=== PATIENT | male | born 1940 | race Caucasian/White ===

== ENCOUNTER 2020-08-07 13:13 | Emergency (ER) | payer OTHER, MEDICARE, SELFPAY ==
[2020-08-07 13:18] VITALS: BP 115/75; PULSE 78; RESP 16; TEMP 36.3; O2SAT 98; BMI 29.2
--- NOTE | 2020-08-07 13:40 | ED.VISSUMM ---
- ER Visit Summary Date of Service: 08/07/20 Chief Complaint: Lower lip swelling History of Present Illness: The patient is a 80 M history of diabetes and hypertension is on lisinopril at home. He is never had this happen before. Since about 9 AM this morning he had lower lip swelling. He said he thinks is actually getting a little better. He denies any other complaints. He denies any trouble breathing or swallowing. No tongue swelling. Physical Examination: Older male no acute distress vital signs stable afebrile. Current blood pressure 115/75. Pulse ox 98% on room air no signs hypoxia. H EENT exam poor dentition. Decaying teeth. Cavities. His lower lip is swollen. His tongue and floor of his mouth and posterior pharynx are unremarkable. No trouble swallowing or breathing. Neck nontender. No lymphadenopathy. Lungs clear to auscultation bilaterally. Heart regular rhythm no murmur. Abdomen is soft and nontender. Normal bowel sounds no peritoneal signs. Moving all 4 extremities. No edema. Neurologically is awake and alert with no focal motor deficits. Test Results: None Emergency Department Course and Treatment: History and exam and with the patient currently being on an ELIZABETH inhibitor for his blood pressure this is all consistent with this being angioneurotic edema of his lower lip. He will be given 1 dose of prednisone. He and I and his talked he will need to come off the lisinopril. Treatment Plan: Change his blood pressure medication to metoprolol. Watch his blood pressures at home. [facility] to determine what blood pressure medication needs to be on long-term. He knows he can no longer take any ELIZABETH inhibitor medications. Disposition: discharge Impression: Lower lip swelling secondary to angioneurotic edema secondary to ELIZABETH inhibitor History of hypertension and diabetes This note was generated with [employer] software. It may contain incorrect words, spelling, and punctuation that were not noted in review of the chart prior to signing ED Disposition - Plan for ED Patient: Referrals: Braden Faith MD [Primary Care Provider] -
--- NOTE | 2020-08-07 13:43 | ED.DEP ---
ED Disposition - Plan for ED Patient: Disposition: Home or Assisted Living Instructions: ED Angioedema Prescriptions: Metoprolol Succinate 25 mg PO DAILY #30 tab.er.24h Prescription Printed Referrals: Braden Faith MD [Primary Care Provider] - As Needed Additional Instructions: Follow-up with either Dr. Faith or the [facility] whichever one prescribes your blood pressure medication. The swelling of your lip was most likely caused by the lisinopril which is a type of blood pressure medication called ELIZABETH inhibitors. You could no longer be on these medications. We will start you on metoprolol for your blood pressure. Watch her blood pressures to make sure the not too low or too high. Long-term your primary care physician at the [facility] can determine what medication to have you on. The swelling should get better if it gets worse or you have a trouble breathing or swallowing return to the emergency department immediately.
[2020-08-07 14:07] VITALS: BP 168/93; PULSE 77; RESP 16; O2SAT 100
[2020-08-07] MEDS: predniSONE 20 MG Tablet 40 MG PO (14:07)
== END 2020-08-07 14:15 | disposition home or self-care (01) ==
PROVIDERS: Emergency Provider Emergency Medicine; PCP Family Medicine
DX: T78.3XXA Angioneurotic edema, initial encounter (principal); T46.4X5A Adverse effect of angiotensin-converting-enzyme inhibitors, initial encounter; E11.9 Type 2 diabetes mellitus without complications; I10 Essential (primary) hypertension
CPT/HCPCS: 99283

== ENCOUNTER 2023-01-24 11:10 | Emergency (ER) | payer OTHER, SELFPAY ==
[2023-01-24 11:11] VITALS: BP 140/80; PULSE 70; RESP 16; TEMP 36.6; O2SAT 98; BMI 27.7
--- NOTE | 2023-01-24 11:40 | EDS_ITS ---
HPI History of Present Illness Chief Complaint: Dental [facility] Medical History (Updated 01/24/23 @ 14:[address] Eren Pierre, ) Diabetes mellitus HTN (hypertension) Home Medications metformin 500 mg tablet,extended release 24 hr 08/07/20 [History Last Taken Unknown] metoprolol succinate 25 mg tablet,extended release 24 hr 25 mg PO DAILY ##30 08/07/20 [Rx Last Taken Unknown] Allergy/AdvReac Type Severity Reaction Status Date / Time No Known Allergies Allergy Verified 01/24/23 11:12 Social History Smoking Status: Former smoker EXAM Physical Exam Const Vital Signs: 01/24/23 11:11 Temperature 97.9 F Temperature Source Temporal Pulse Rate 70 Respiratory Rate 16 Blood Pressure 140/80 H Blood Pressure Mean 100 Pulse Ox 98 Oxygen Delivery Method Room Air MDM MDM MDM Narrative Medical decision making narrative: HISTORY OF PRESENT ILLNESS: 83-year-old male here for left sided facial/jaw swelling for last 3 days. He denies any pain. Denies any dental pain. Denies any vomiting. Denies any drooling. Denies any neck stiffness. Denies any syncope. Denies a history of cancer. Denies any chest pain or shortness of breath REVIEW OF SYSTEMS: Pertinent positives: Swelling Pertinent negatives: Trouble swallowing, drooling PHYSICAL EXAM: Nursing triage notes reviewed, Vital signs reviewed Constitutional: please see mdm HENT: MMM, no evidence of dental abscess, no submandibular edema or induration, no tonsillar exudates or erythema, uvula midline, patient was controlling secretions, no drooling, no trimus, no dysphonia, there is small area of movable tissue in the left angle of the mandible with no overlying skin changes nonten dann to palpation with no fluctuance or induration Eyes: Pupils equal round and reactive to light, Extraocular muscles intact Neck: No stridor, no JVD, full neck ROM Lungs: Clear to auscultation, No wheezing or rales. No increased work of breathing, no conversational dyspnea, no accessory muscle use, no nasal flaring. No respiratory distress noted Heart: Regular rate and rhythm, No murmurs, No rubs and No gallops, 2+ distal pulses (radial, femoral, posterior tibial) in all extremities MEDICAL DECISION MAKING: Chief Complaint: Jaw swelling External records reviewed: No recent advanced imaging MDM Narrative: The patient was hemodynamically stable, afebrile, nontoxic-appearing. Exam with freely movable mass in the left jaw. I considered the following differential diagnosis: Mass, abscess, lymphadenopathy No oral lesions. No airway compromise trismus or other abnormalities. CT scan was obtained to rule out abscess, mass. CT scan was concerning for lymphadenopathy versus mass. Told patient take Tylenol/ibuprofen I gave strict return precautions. I did make the patient close follow-up with our outpatient oncology clinic called [facility]. Factors affecting care: Type 2 diabetes, hypertension Social determinants of health: Elderly History obtained from others: Shared decision making: I will have a discussion with the patient and or visitors regarding risk/wilma efits of further testing or admission. They will be made aware of of the risk/benefits inherent in this decision they will be given the opportunity to voice understanding. Consults: None Lab Data Attestation: I reviewed the patient's lab results. Lab results narrative: CBC without leukocytosis, severe anemia, no thrombocytopenia. BMP without evidence of significant electrolyte abnormalities, no anion gap, no acute kidney injury. Labs: Laboratory Results - last 24 hr 01/24/23 01/24/23 12:10 12:10 WBC 7.3 RBC 4.39 L Hgb 13.8 Hct 42.9 MCV 97.7 H MCH 31.4 MCHC 32.2 RDW Std Deviation 47.2 H RDW Coeff of Michelle 13.2 Plt Count 141 L MPV 9.6 Immature Gran % (Auto) 1.800 H Neut % (Auto) 59.2 Lymph % (Auto) 27.4 [place] % (Auto) 9.4 Eos % (Auto) 1.5 Baso % (Auto) 0.7 Absolute Neuts (auto) 4.3 Absolute Lymphs (auto) 1.99 Nucleated RBC % 0 Sodium 140 Potassium 3.9 Chloride 109 H Carbon Dioxide 26.0 Anion Gap 5 BUN 15 Creatinine 0.97 Estim Creat Clear Calc 59.73 Est GFR (MDRD) Af Amer 95 Est GFR (MDRD) Non-Af 79 BUN/Creatinine Ratio 15.4 Glucose 189 H Calcium 9.2 Radiography Diagnostic Testing: Clinical Impression(s) from Imaging Studies Soft Tissue Neck CT 01/24/23 12:03 IMPRESSION: Multiple small nodules throughout the bilateral parotid glands which may represent intraparotid lymph nodes or benign lymphoepithelial lesions. 1.3 cm nodule at the inferior margin of the left parotid, which may represent mild lymphadenopathy or small salivary gland tumor. Recommend follow-up. Mild subcutaneous edema over the left neck and involving the submandibular gland, likely cellulitis or mild inflammation without evidence for abscess. Severe calcified plaque at the right carotid bifurcation. Technologist reported IV infiltration during examination. Recommend correlation with physical examination of injection site. Electronically Signed: Bisi Walker MD at 13:55 EDT , Discharge Plan Triage Chief Complaint: Dental ED Provider: Eren Pierre Dx/Rx/DC Orders Clinical Impression: Lymphoid hyperplasia Instructions: Lymphadenopathy Prescriptions: No Action metformin 500 MG tablet metoprolol succinate 25 MG tablet extended release 24 hr 25 mg PO DAILY Qty: 30 1RF Other Ambulatory Orders: [facility]: Oncology Referral [facility] (Routine) Facility: [facility] - Location: [facility] Ordered By: Dr. Eren Pierre Primary Care Provider: Braden Faith Referrals: Braden Faith MD [Primary Care Provider] - Activity Restrictions/Additional Instructions: Thank you for trusting us with your care today! Please take Tylenol (2 pills, 650 mg), ibuprofen (2 pills, 400 mg) every 6 hours as needed for pain and fever control. Please return to the emergency department if your symptoms change or worsen. Specifically if you develop swelling of your chin, drooling, difficulty swallowing, Please follow with your primary care physician for further outpatient evaluation and management. Please follow with her [facility]. They will get you into an oncologist for further evaluation and further treatment. Disposition Disposition: Home, Self Care
--- NOTE | 2023-01-24 12:03 | CT_ITS ---
HISTORY: left sided neck mass r/o abscess, lymphadenopathy. TECHNIQUE: Helically acquired images were obtained of the neck after the intravenous administration of 75 mL Isovue 300. A radiation dose optimization technique was used for this scan. 276 images. COMPARISON: None. FINDINGS: NASOPHARYNX: Unremarkable. SUPRAHYOID NECK: Unremarkable oropharynx, oral cavity, parapharyngeal space, and retropharyngeal space. INFRAHYOID NECK: Unremarkable larynx, hypopharynx, and supraglottis. THYROID: No focal lesions. SALIVARY GLANDS: Several small bilateral parotid nodules. Mild enlargement of the left submandibular gland compared to the right. Mild subcutaneous edema and thickening of the platysma over the left sublenticular gland without rim-enhancing fluid collection. LYMPH NODES: Mildly enlarged 1.3 cm lymph node at the inferior margin of the left parotid. VASCULAR STRUCTURES: Severe calcified plaque at the right carotid bifurcation. ORBITS: Symmetric visualized contents. VISUALIZED PORTIONS OF THE PARANASAL SINUSES, MASTOID AIR CELLS: Mild fluid in the right mastoid air cells. Left maxillary sinus mucous retention cyst. OSSEOUS STRUCTURES: Degenerative endplate changes of the cervical spine with multiple posterior disc bulge osteophyte complexes resulting in at least moderate spinal canal stenosis. LUNG APICES: Clear. CT/Soft Tissue Neck WITH Contrast IMPRESSION: Multiple small nodules throughout the bilateral parotid glands which may represent intraparotid lymph nodes or benign lymphoepithelial lesions. 1.3 cm nodule at the inferior margin of the left parotid, which may represent mild lymphadenopathy or small salivary gland tumor. Recommend follow-up. Mild subcutaneous edema over the left neck and involving the submandibular gland, likely cellulitis or mild inflammation without evidence for abscess. Severe calcified plaque at the right carotid bifurcation. Technologist reported IV infiltration during examination. Recommend correlation with physical examination of injection site. Electronically Signed: Bisi Walker MD at 13:55 EDT ,
[2023-01-24 12:27] LABS: Absolute Lymphocyte Count 1.99 X10^3/uL (0.83-4.51); Absolute Neutrophil Count 4.3 X10^3/uL (2.0-7.7); Basophil# 0.05 X10^3/uL; Basophil% 0.7 % (0-1); Eosinophil# 0.11 X10^3/uL; Eosinophils% 1.5 % (0-5); Hematocrit 42.9 % (40-54); Hemoglobin 13.8 g/dL (13.0-16.5); Lymphocyte # 1.99 X10^3/ul (0.83-4.51); Lymphocyte % 27.4 % (19-41); Mean Corp Hgb Conc 32.2 g/dL (32-36); Mean Corpuscular Hgb 31.4 pg (27.0-32.0); Mean Corpuscular Volume 97.7 fL (80-94); Mean Platelet Vol. 9.6 fl (6.2-12.0); Monocyte# 0.68 X10^3/uL; Monocyte% 9.4 % (0-10); NRBC Flagged by Analyzer 0 % (0-5); Neutrophil # 4.29 X10^3/uL (2.7-7.7); Neutrophil % 59.2 % (47-70); Platelet Count 141 K/mm3 (150-450); RBC Distribution Width CV 13.2 % (11.6-14.6); RBC Distribution Width SD 47.2 fl (35.1-43.9); Red Blood Count 4.39 M/mm3 (4.6-6.2); White Blood Count 7.3 K/mm3 (4.4-11.0)
[2023-01-24 12:39] LABS: Anion Gap 5 (5-15); BUN 15 mg/dL (7-18); BUN/Creat Ratio 15.4 RATIO (10-20); Calcium,Total 9.2 mg/dL (8.5-10.1); Chloride 109 mmol/L (98-107); Creatinine, Serum 0.97 mg/dL (0.70-1.30); EST Glomerular Filtration Rate 79 mL/min (>60); Est Glom Filt Rate - Afr Amer 95 mL/min (>60); Estimated Creatinine Clearance 59.73 ml/min; Glucose 189 mg/dL (74-106); Potassium 3.9 mmol/L (3.5-5.1); Sodium Level 140 mmol/L (136-145)
[2023-01-24 14:28] VITALS: RESP 22
== END 2023-01-24 14:30 | disposition home or self-care (01) ==
PROVIDERS: Emergency Provider Emergency Medicine; PCP Family Medicine; Visit Provider Emergency Medicine
DX: K38.0 Hyperplasia of appendix (principal); E11.9 Type 2 diabetes mellitus without complications; Z87.891 Personal history of nicotine dependence; I10 Essential (primary) hypertension; Z79.899 Other long term (current) drug therapy; Z79.84 Long term (current) use of oral hypoglycemic drugs
CPT/HCPCS: 70491; 80048; 85025; 99282; Q9967; A4216

== ENCOUNTER → 2023-02-05 | Outpatient (CLI) | payer MEDICARE, SELFPAY ==
[2023-02-05 15:43] LABS: Absolute Lymphocyte Count 2.41 X10^3/uL (0.83-4.51); Absolute Neutrophil Count 4.1 X10^3/uL (2.0-7.7); Basophil# 0.05 X10^3/uL; Basophil% 0.7 % (0-1); Eosinophil# 0.13 X10^3/uL; Eosinophils% 1.8 % (0-5); Hemoglobin 13.8 g/dL (13.0-16.5); Lymphocyte # 2.41 X10^3/ul (0.83-4.51); Lymphocyte % 32.5 % (19-41); Mean Corp Hgb Conc 34.5 g/dL (32-36); Mean Corpuscular Hgb 31.8 pg (27.0-32.0); Mean Corpuscular Volume 92.2 fL (80-94); Mean Platelet Vol. 9.4 fl (6.2-12.0); Monocyte# 0.68 X10^3/uL; Monocyte% 9.2 % (0-10); NRBC Flagged by Analyzer 0 % (0-5); Neutrophil # 4.12 X10^3/uL (2.7-7.7); Neutrophil % 55.5 % (47-70); Platelet Count 208 K/mm3 (150-450); RBC Distribution Width CV 13.2 % (11.6-14.6); RBC Distribution Width SD 44.1 fl (35.1-43.9); Red Blood Count 4.34 M/mm3 (4.6-6.2); White Blood Count 7.4 K/mm3 (4.4-11.0)
[2023-02-05 16:14] LABS: Erythrocyte Sedimentation Rate 2 mm/hr (0-20)
[2023-02-05 16:54] LABS: HIV - WCH Non-Reactive (Nonreactive)
[2023-02-08 15:08] LABS: ANTINUCLEAR ANTIBODIES DIRECT Negative (Negative)
== END | disposition home or self-care (01) ==
LOC: LAB 15:03
PROVIDERS: PCP Family Medicine; Referring Provider Otolaryngology; Visit Provider Otolaryngology
DX: R22.1 Localized swelling, mass and lump, neck (principal); D11.0 Benign neoplasm of parotid gland
CPT/HCPCS: 36415; 85025; 85652; 86038; 86225; 86235; 86703

== ENCOUNTER 2023-10-30 07:15 | Emergency (ER) | payer MEDICARE, SELFPAY ==
[2023-10-30 07:16] VITALS: BP 129/76; PULSE 88; RESP 16; TEMP 36.4; O2SAT 97; BMI 26.6
--- NOTE | 2023-10-30 07:32 | EDS_ITS ---
HPI History of Present Illness Chief Complaint: Laceration Detail of Chief Complaint: Laceration to left thumb Informant: patient Narrative Narrative: Patient presents with a laceration to his left thumb that occurred last evening at 6 PM. Patient states that he was using a table saw when he accidentally cut himself. Has been bleeding throughout the night. He is not on blood thinners. He is left-hand dominant. Is unsure of his last tetanus. [facility] Medical History (Updated 10/30/23 @ 07:[address] Krish Langford, ) Diabetes mellitus HTN (hypertension) Home Medications metformin 500 mg tablet,extended release 24 hr 08/07/20 [History Last Taken Unknown] metoprolol succinate 25 mg tablet,extended release 24 hr 25 mg PO DAILY ##30 08/07/20 [Rx Last Taken Unknown] Allergy/AdvReac Type Severity Reaction Status Date / Time No Known Allergies Allergy Verified 10/30/23 07:16 Social History Smoking Status: Former smoker ROS ROS ED Review of Systems ROS Unobtainable: other Constitutional Constitutional ED: Reports lethargy; Denies chills, fever(s), sweats or weight loss Eyes Eyes: Denies blurry vision, change in vision or diplopia ENT ENT ED: Denies rhinorrhea or sore throat Cardiovascular Cardiovascular: Denies chest pain, orthopnea or racing heartbeat Respiratory/Chest Respiratory/Chest: Denies cough, dyspnea, dyspnea on exertion, orthopnea or sputum Gastrointestinal Gastrointestinal: Denies abdominal pain, diarrhea, nausea or vomiting Genitourinary Genitourinary ED: Denies dysuria, hematuria or urinary frequency Musculoskeletal Musculoskeletal: Denies arthralgias, back pain, myalgias or neck pain Integumentary Reports other Details: Laceration left thumb ; Denies abscess, Abrasions or rash Neurologic Neurologic: Denies headache(s) or weakness Psychiatric Psychiatric: Denies anxiety, depression or suicidal thoughts Endocrine Endocrinology: Denies polydipsia, polyphagia or polyuria Hematologic/Lymphatic Hematologic/Lymphatic: Denies easy bleeding, easy bruising or lymphadenopathy Allergic/Immunologic Allergic/Immunologic ED: Denies mouth swelling, tongue swelling or urticaria EXAM Physical Exam Const Vital Signs: 10/30/23 07:16 Temperature 97.6 F L Temperature Source Temporal Pulse Rate 88 Respiratory Rate 16 Blood Pressure 129/76 H Blood Pressure Mean 93 Pulse Ox 97 Oxygen Delivery Method Room Air Positive well nourished and well developed General Appearance ED: well developed and NAD HEENT Reports TM's clear and moist mucous membranes normocephalic and atraumatic; Negative for trauma or tenderness Tympanic Membrane ED: Yes TM's clear Eyes PERRL and EOMs intact bilaterally General Eye ED: Negative for pale conjunctiva or scleral icterus Neck no lymphadenopathy, supple and no JVD General: Negative for tenderness Chest Wall inspection of chest normal and palpation of chest normal Chest: Negative for tenderness Resp normal respiratory effort and clear to auscultation bilaterally Effort and Inspection: Negative for respiratory distress or pain with movement Auscultation: Negative for rhonchi, wheezes or diminished lung sounds Cardio regular rate, regular rhythm, S1 normal heart sound, S2 normal heart sound and no murmurs Peripheral Pulses: pulses 2+ throughout GI normal to inspection, nondistended, normoactive bowel sounds, soft to palpation, non-tender, non-distended and no masses Back/Spine no CVA tenderness and no thoracic nor lumbar tenderness Extremity Extremity Narrative: Left thumb-patient has a 2 cm flap laceration to the distal phalanx involving approximately 5% of the nail. No real bony tenderness on exam. No deformity. Neurovascularly intact. General Extremety ED: Negative for edema General Extremity: Negative for edema Neuro oriented x3, CN's II-XII intact bilaterally, no sensory deficits noted and gait normal Sensorium / Orientation: awake, alert, oriented to person, oriented to place and oriented to time Motor Exam: strength 5/5 throughout and strength abnormal Psych mental status grossly normal Skin no rashes or lesions noted and no wounds MDM MDM MDM Narrative Medical decision making narrative: Patient has a 2 cm flap-like laceration and all being small portion of the distal nail. Recommended repair as a had continued to ooze throughout the night. He is at about 13 hours since injury. Patient agreed. He had a digital block performed. Please see procedure note. The flap just has a proximal small amount of skin holding it in place and I did express to him that this flap may and wound will heal by secondary intention from below. Advised to have sutures removed in 10 days. Advised to return if increasing pain, redness, swelling, purulent drainage, or condition should worsen anyway. Wound is relatively superficial and there is no exposed phalanx or concern for involvement of the distal phalanx therefore I do not feel any type of imaging is indicated. Procedures Lacerations Left thumb laceration: Length: 0.79 in Depth: Sub Q Shape: Flap Prep: Shruchi-Clens Laceration repair: Irrigated, Lidocaine, Nerve block and Skin sutures Irrigated (ml): 50 Number of Sutures/Lydia: 4 Suture Information: Ethilon and Simple Discharge Plan Triage Chief Complaint: Laceration ED Provider: Krish Langford Dx/Rx/DC Orders Clinical Impression: Laceration of left thumb Instructions: ED Laceration, Hand: All Closures Prescriptions: No Action metformin 500 MG tablet metoprolol succinate 25 MG tablet extended release 24 hr 25 mg PO DAILY Qty: 30 1RF Primary Care Provider: Braden Faith Referrals: Jose L Carbajal MD [Med Staff - [employer] Control Operator] - 10 Day for suture removal Braden Faith MD [Primary Care Provider] - Disposition Disposition: Home, Self Care
[2023-10-30] MEDS: Lidocaine 1% (20 ml mdv) 20 ML Vial 8 ML INFILT (07:38)
[2023-10-30] MEDS: Diphth,Pertuss(Acell),Tet Vac 0.5 ML Vial IM (07:57)
[2023-10-30 08:37] VITALS: BP 128/74; PULSE 88; RESP 16; TEMP 36.6; O2SAT 97
[2023-10-30 08:43] VITALS: BP 128/74; PULSE 88; RESP 16; TEMP 36.6; O2SAT 97
== END 2023-10-30 08:44 | disposition home or self-care (01) ==
PROVIDERS: Emergency Provider Emergency Medicine; Visit Provider Emergency Medicine
DX: S61.112A Laceration without foreign body of left thumb with damage to nail, initial encounter (principal); E11.9 Type 2 diabetes mellitus without complications; Z87.891 Personal history of nicotine dependence; W31.2XXA Contact with powered woodworking and forming machines, initial encounter; I10 Essential (primary) hypertension; Z79.899 Other long term (current) drug therapy; Z79.84 Long term (current) use of oral hypoglycemic drugs
CPT/HCPCS: 12001; 90471; 90715; 99283

== ENCOUNTER 2025-02-18 08:17 | Emergency (ER) | payer OTHER, SELFPAY ==
[2025-02-18 08:17] VITALS: BP 135/88; PULSE 74; RESP 16; TEMP 36.1; O2SAT 100; BMI 26.3
--- NOTE | 2025-02-18 08:57 | EX.ED.DYSGE1 ---
HPI History of Present Illness Chief Complaint: Cellulitis Informant: patient and spouse/S.O. Narrative Narrative: Presents here today for other evaluation wounds to right forearm. He has intermittent scattered wounds elsewhere. He has a bulldog stating the blood jumped on him causing injuries. He is also scratches at these wounds. No fever chills or sweats. He is a diabetic. No antibiotic allergies. Tetanus in last 5 years and from records it was 2023. Denies fever chills or sweats. PFSH PFS Medical History HTN (hypertension) Diabetes mellitus Home Medications ?Medication ?Instructions ?Recorded ?Last Taken ?Type metformin 500 mg tablet,extended 08/07/20 Unknown History release 24 hr metoprolol succinate 25 mg 25 mg PO DAILY ##30 08/07/20 Unknown Rx tablet,extended release 24 hr amoxicillin 875 mg-potassium 875 mg PO Q12H #14 TABLETS 02/18/25 Unknown Rx clavulanate 125 mg tablet Allergy/AdvReac Type Severity Reaction Status Date / Time No Known Allergies Allergy Verified 02/18/25 08:21 Social History Smoking Status: Former smoker ROS ROS ED Constitutional Constitutional ED: Denies fever(s) Cardiovascular Cardiovascular: Denies chest pain Respiratory/Chest Respiratory/Chest: Denies cough Gastrointestinal Gastrointestinal: Denies diarrhea or vomiting Musculoskeletal Musculoskeletal: Denies none Integumentary Reports wounds; Denies rash Neurologic Neurologic: Denies weakness EXAM Physical Exam Const Vital Signs: 02/18/25 08:17 02/18/25 09:27 02/18/25 09:27 Temperature 96.9 F L 97.2 F L 97.2 F L Temperature Source Temporal Oral Pulse Rate 74 81 81 Respiratory Rate 16 16 16 Blood Pressure 135/88 H 128/76 H 128/76 H Blood Pressure Mean 103 93 93 Pulse Ox 100 100 100 Oxygen Delivery Method Room Air Room Air Positive well nourished and well developed General Appearance ED: well developed HEENT normocephalic and atraumatic Eyes General Eye ED: Yes normal appearance of both eyes Neck full ROM Resp normal respiratory effort and normal air movement Cardio regular rate and regular rhythm GI soft to palpation Extremity Extremity Narrative: Right forearm: There is linear abrasion proximal forearm mild erythema around this there were small wound dorsal aspect of the proximal hand at the first MCP there is mild erythema around this. There are scattered ecchymosis distal forearm. There is no active drainage. Left forearm: Skin scattered small ecchymosis dorsal distal forearm and hand. Skin intact. Neuro oriented x3 Skin Skin Narrative: See above MDM MDM MDM Narrative Medical decision making narrative: Interventions / MDM: Differential diagnosis: Cellulitis, history of diabetes Diagnosis considered but do not suspect: No abscess noted. My EKG interpretation: N/A Imaging independently reviewed and interpreted by myself: N/A External documents reviewed: N/A Test considered but not ordered:N/A ED course: Vital stable nontoxic tetanus up-to-date. Patient abrasions occurred from pet. There is slight erythema around the dorsal hand and the proximal abrasion. No drainage no indurations. With him being diabetic with pet injury we will start him on antibiotics of Augmentin. I discussed good wound care with patient and significant other. Discussed follow-up with primary care doctor. All questions were answered. Re-evaluation: stable Disposition discussed with patient/family/significant other: Patient significant other Case discussed with consulting clinician: N/A This note was generated with [employer] dictation software. It may contain incorrect words, spelling, and punctuation that were not noted in checking the note before signing. Discharge Plan Triage Chief Complaint: Cellulitis ED Provider: Sheldon Black Dx/Rx/DC Orders Clinical Impression: Abrasion of arm, right, Cellulitis Instructions: ED Abrasion, ED Cellulitis Prescriptions: New amoxicillin-pot clavulanate 875-125 mg tablet 875 mg PO Q12H Qty: 14 0RF No Action metformin 500 MG tablet metoprolol succinate 25 MG tablet extended release 24 hr 25 mg PO DAILY Qty: 30 1RF [facility] Referrals: Care Physician,No Primary [Non-Staff] - Activity Restrictions/Additional Instructions: Wound care as discussed. take antibiotic as prescribed. Follow-up with your doctor. Print Language: French Disposition Disposition: Home, Self Care Discharge Date/Time: 02/18/25 09:28
[2025-02-18 09:27] VITALS: BP 128/76; PULSE 81; RESP 16; TEMP 36.2; O2SAT 100
--- OUTSIDE RECORDS SUMMARY | 2025-02-18 11:25 | XMS RPT_ITS | CCD ---
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 backpacks. When returning from the outdoors, check for ticks. Be especially observant of hair, body folds, ears, underarms and the back. Check your clothes and gear for ticks and wash these items immediately. What if I have been bitten by a tick? If you discover a tick, remove it immediately. The longer the tick feeds, the greater chance that it can transmit its bacteria to you. The easiest removal method is to use a pair of tweezers, grasp the tick as close to your skin as possible, and gently pull the tick off. Then, thoroughly wash your hands and the bite area with rubbing alcohol to prevent transmission to other areas of your body. When should I call the doctor? It is best to wait and see whether you develop any signs or symptoms. If a large red braden forms around the tick bite or if you develop fever, flu-like symptoms, rash, or more severe illness, contact your doctor right away. Your doctor can determine whether these symptoms might be caused by a tick-borne disease, and whether antibiotics will be needed. Is there a vaccine for preventing tick-borne disease in humans? Currently there are vaccines being tested, but there are no guarantees that they will be effective. The best option is to take precautions so that tick bites do not occur in the first place. Early Signs and Symptoms (3 to 30 days after tick bite) Fever, chills, headache, fatigue, muscle and joint aches, and swollen lymph nodes Erythema migrans (EM) rash: Occurs in approximately 70 to 80 percent of infected persons Begins at the site of a tick bite after a delay of 3 to 30 days (average is about 7 days) Expands gradually over a period of days reaching up to 12 inches or more (30 cm) across May feel warm to the touch but is rarely itchy or painful Sometimes clears as it enlarges, resulting in a target or ?bull's-eye? appearance May appear on any area of the body Later Signs and Symptoms (days to months after tick bite) Severe headaches and neck stiffness Additional EM rashes on other areas of the body Arthritis with severe joint pain and swelling, particularly the knees and other large joints. Facial or Palacios's palsy (loss of muscle tone or droop on one or both sides of the face) Intermittent pain in tendons, muscles, joints, and bones Heart palpitations or an irregular heart beat (Lyme carditis) Episodes of dizziness or shortness of breath Inflammation of the brain and spinal cord Nerve pain Shooting pains, numbness, or tingling in the hands or feet Problems with short-term memory Becky Soler APRN.INCOME TAX ADVISOR 12/13/2023 9:10 AM Signed Subjective HPI Ruel Alaniz is a 83 year old male who presents with a tick bite on the back portion of his scalp, right side. He had a tick attached which he pulled off last night. He believes the tick was attached for a month-he thought he had a knot in his hair and when he finally tried to remove it he pulled a tick off. He washed the area with hydrogen peroxide. He states it was very large and fat and when he squeezed it it was full of blood. He denies fever, chills, headache, joint pain or rash. Review of Systems Constitutio (more content not included)... Normal [facility] Emergency Department Summary on 10-30-2023 Emergency Department Summary [facility] Medical Records Department [address] [place] [address] Emergency Department Summary 10/30/23 MR#: [id number] Acct: [id number] Name: RUEL ALANIZ Rep #: [id number] : 1940 83 From: Krish Langford DO PCP: Care Physician,No Primary Status:DEP ER Location: ED HPI History of Present Illness Chief Complaint: Laceration Detail of Chief Complaint: Laceration to left thumb Informant: patient Narrative Narrative: Patient presents with a laceration to his left thumb that occurred last evening at 6 PM. Patient states that he was using a table saw when he accidentally cut himself. Has been bleeding throughout the night. He is not on blood thinners. He is left-hand dominant. Is unsure of his last tetanus. [facility] Medical History (Updated 10/30/23 @ 07:[address] Krish Langford DO) Diabetes mellitus HTN (hypertension) Home Medications metformin 500 mg tablet,extended release 24 hr 08/07/20 [History Last Taken Unknown] metoprolol succinate 25 mg tablet,extended release 24 hr 25 mg PO DAILY ##30 08/07/20 [Rx Last Taken Unknown] Allergy/AdvReac Type Severity Reaction Status Date / Time No Known Allergies Allergy Verified 10/30/23 07:16 Social History Smoking Status: Former smoker ROS ROS ED Review of Systems ROS Unobtainable: other Constitutional Constitutional ED: Reports lethargy; Denies chills, fever(s), sweats or weight loss Eyes Eyes: Denies blurry vision, change in vision or diplopia ENT ENT ED: Denies rhinorrhea or sore throat Cardiovascular Cardiovascular: Denies chest pain, orthopnea or racing heartbeat Respiratory/Chest Respiratory/Chest: Denies cough, dyspnea, dyspnea on exertion, orthopnea or sputum Gastrointestinal Gastrointestinal: Denies abdominal pain, diarrhea, nausea or vomiting Genitourinary Genitourinary ED: Denies dysuria, hematuria or urinary frequency Musculoskeletal Musculoskeletal: Denies arthralgias, back pain, myalgias or neck pain Integumentary Reports other Details: Laceration left thumb ; Denies abscess, Abrasions or rash Neurologic Neurologic: Denies headache(s) or weakness Psychiatric Psychiatric: Denies anxiety, depression or suicidal thoughts Endocrine Endocrinology: Denies polydipsia, polyphagia or polyuria Hematologic/Lymphatic Hematologic/Lymphatic : Denies easy bleeding, easy bruising or lymphadenopathy Allergic/Immunologic Allergic/Immunologic ED: Denies mouth swelling, tongue swelling or urticaria EXAM Physical Exam Const Vital Signs: 10/30/23 07:16 Temperature 97.6 F L Temperature Source Temporal Pulse Rate 88 Respiratory Rate 16 Blood Pressure 129/76 H Blood Pressure Mean 93 Pulse Ox 97 Oxygen Delivery Method Room Air Positive well nourished and well developed General Appearance ED: well developed and NAD HEENT Reports TM's clear and moist mucous membranes normocephalic and atraumatic; Negative for trauma or tenderness Tympanic Membrane ED: Yes TM's clear Eyes PERRL and EOMs intact bilaterally General Eye ED: Negative for pale conjunctiva or scleral icterus Neck no lymphadenopathy, supple and no JVD General: Negative for tenderness Chest Wall inspection of chest normal and palpation of chest normal Chest: Negative for tenderness Resp normal respiratory effort and clear to auscultation bilaterally Effort and Inspection: Negative for respiratory distress or pain with movement Auscultation: Negative for rhonchi, wheezes or diminished lung sounds Cardio regular rate, regular rhythm, S1 normal heart sound, S2 normal heart sound and no murmurs Peripheral Pulses: pulses 2+ throughout GI normal to inspection, nondistended, normoactive bowel sounds, soft to palpation, non-tender, non- distended and no masses Back/Spine no CVA tenderness and no thoracic nor lumbar tenderness Extremity Extremity Narrative: Left thumb-patient has a 2 cm flap laceration to the distal phalanx involving approximately 5% of the nail. No real bony tenderness on exam. No deformity. Neurovascularly intact. General Extremety ED: Negative for edema General Extremity: Negative for edema Neuro oriented x3, CN's II-XII intact bilaterally, no sensory deficits noted and gait normal Sensorium / Orientation: awake, alert, oriented to person, oriented to place and oriented to time Motor Exam: strength 5/5 throughout and strength abnormal Psych mental status grossly normal Skin no rashes or lesions noted and no wounds MDM MDM MDM Narrative Medical decision making narrative: Patient has a 2 cm flap-like laceration and all being small portion of the distal nail. Recommended repair as a had continued to ooze throughout the night. He is at about 13 hours since injury. Patient agreed. He had a digital block performed. Please see procedure note. The f (more content not included)... Normal [facility] LOLLY w/ Reflex Mult Confirmon 02-08-2023 LOLLY,DIRECT Negative Normal Negative [facility] Comment on above: Result Comment: Perf ormed at: CB - [facility] [address] [id number] Doula: Cal Pettit PhD, Phone: [phone] Performed By: #### L 101.5966, V8911.7942, L100.3227, L3131.4632 #### [facility] [address] [place], [address] Absolute lymphocyte countOrd ered By: Jasmeet Wong on 02-05-2023 Lymphocytes Auto (Unsp spec) [#/Vol] 2.41 10*3/uL 0.83-4.51 [facility] Basophil percentageOrdered B y: Jasmeet Wong on 02-05-2023 Basophil percentage Not Reportable [facility] Basophils/100 WBC (Bld) 0.7 % 0-1 [facility] Eosinophils/100 WBC (Bld) 1.8 % 0-5 [facility] Neutrophils (Bld) [#/Vol] 4.1 10*3/uL 2.0-7.7 [facility] Neutrophils/100 WBC (Bld) 55.5 % 47-70 [facility] WBC (Bld) [#/Vol] 7.4 10*3/uL 4.4-11.0 [facility] Blood erythrocytes count (nu mber/volume)Ordered By: Jasmeet Wong on 02-05-2023 RBC (Bld) [#/Vol] 4.34 10*6/uL 4.6-6.2 [facility] Blood hemoglobin measurement (mass/volume)Ordered By: Jasmeet Wong on 02-05-2023 Hemoglobin (Bld) [Mass/Vol] 13.8 g/dL 13.0-16.5 [facility] Blood lymphocytes/100 leukoc ytesOrdered By: Jasmeet Wong on 02-05-2023 Lymphocytes/100 WBC (Bld) 32.5 % 19-41 [facility] Blood monocytes/100 leukocyt esOrdered By: Jasmeet Wong on 02-05-2023 Monocytes/100 WBC (Bld) 9.2 % 0-10 [facility] Blood platelet mean volumeOr dered By: Jasmeet Wong on 02-05-2023 Platelet mean volume (Bld) [Entitic vol] 9.4 fL 6.2-12.0 [facility] CBC W/Diff, Automatedon 07-0 Absolute Lymph 2.41 X10 3/uL Normal 0.83-4.51 [facility] Comment on above: Performed By: #### L 101.9900, L3890.6005, L100.0100, L3100.5450 #### [facility] [address] [place], [address] Absolute Neut 4.1 X10 3/uL Normal 2.0-7.7 [facility] Comment on above: Performed By: #### L 101.9900, L3890.6005, L100.0100, L3100.5450 #### [facility] [address] [place], [address] Basophils/100 WBC (Bld) 0.7 % Normal 0-1 [facility] Comment on above: Performed By: #### L 101.9900, L3890.6005, L100.0100, L3100.5450 #### [facility] [address] [place], [address] Eosinophils/100 WBC (Bld) 1.8 % Normal 0-5 [facility] Comment on above: Performed By: #### L 101.9900, L3890.6005, L100.0100, L3100.5450 #### [facility] [address] [place], [address] Erythrocyte distribution width (RBC) [Ratio] 13.2 % Normal 11.6-14.6 [facility] Comment on above: Performed By: #### L 101.9900, L3890.6005, L100.0100, L3100.5450 #### [facility] [address] [place], [address] Hematocrit (Bld) [Volume fraction] 40.0 % Normal 40-54 [facility] Comment on above: Performed By: #### L 101.9900, L3890.6005, L100.0100, L3100.5450 #### [facility] [address] [place], [address] Hemoglobin (Bld) [Mass/Vol] 13.8 g/dL Normal 13.0-16.5 [facility] Comment on above: Performed By: #### L 101.9900, L3890.6005, L100.0100, L3100.5450 #### [facility] [address] [place], [address] IG% 0.300 Normal 0.0-0.9 [facility] Comment on above: Result Comment: IG% - Immature Granulocytes (promyelocytes, myelocytes and metamyelocytes) > 1% indicates that a LEFT SHIFT is Present. Performed By: #### L 101.9900, L3890.6005, L100.0100, L3100.5450 #### [facility] [address] [place], [address] Lymphocytes/100 WBC (Bld) 32.5 % Normal 19-41 [facility] Comment on above: Performed By: #### L 101.9900, L3890.6005, L100.0100, L3100.5450 #### [facility] [address] [place], [address] MCH (RBC) [Entitic mass] 31.8 pg Normal 27.0-32.0 [facility] Comment on above: Performed By: #### L 101.9900, L3890.6005, L100.0100, L3100.5450 #### [facility] [address] [place], [address] MCHC (RBC) [Mass/Vol] 34.5 g/dL Normal 32-36 [facility] Comment on above: Performed By: #### L 101.9900, L3890.6005, L100.0100, L3100.5450 #### [facility] [address] [place], [address] MCV (RBC) [Entitic vol] 92.2 fL Normal 80-94 [facility] Comment on above: Performed By: #### L 101.9900, L3890.6005, L100.0100, L3100.5450 #### [facility] [address] [place], [address] Monocytes/100 WBC (Bld) 9.2 % Normal 0-10 [facility] Comment on above: Performed By: #### L 101.9900, L3890.6005, L100.0100, L3100.5450 #### [facility] [address] [place], [address] Neutrophils/100 WBC (Bld) 55.5 % Normal 47-70 [facility] Comment on above: Performed By: #### L 101.9900, L3890.6005, L100.0100, L3100.5450 #### [facility] [address] [place], [address] Nucleated RBC (Bld) [#/Vol] 0 10*3/uL Normal 0-5 [facility] Comment on above: Performed By: #### L 101.9900, L3890.6005, L100.0100, L3100.5450 #### [facility] [address] [place], [address] Platelet mean volume (Bld) [Entitic vol] 9.4 fL Normal 6.2-12.0 [facility] Comment on above: Performed By: #### L 101.9900, L3890.6005, L100.0100, L3100.5450 #### [facility] [address] [place], [address] Platelets (Bld) [#/Vol] 208 10*3/uL Normal 150-450 [facility] Comment on above: Performed By: #### L 101.9900, L3890.6005, L100.0100, L3100.5450 #### [facility] [address] [place], [address] RBC (Bld) [#/Vol] 4.34 10*6/uL Low 4.6-6.2 [facility] Comment on above: Performed By: #### L 101.9900, L3890.6005, L100.0100, L3100.5450 #### [facility] [address] [place], [address] RDW SD 44.1 fl High 35.1-43.9 [facility] Comment on above: Performed By: #### L 101.9900, L3890.6005, L100.0100, L3100.5450 #### [facility] [address] [place], [place], [id number] WBC (Bld) [#/Vol] 7.4 10*3/uL Normal 4.4-11.0 [facility] Comment on above: Performed By: #### L 101.9900, L3890.6005, L100.0100, L3100.5450 #### [facility] [address] [place], [place], [id number] Determination of erythrocyte mean corpuscular volume (MCV)Ordered By: Jasmeet Wong on 02-05-2023 MCV (RBC) [Entitic vol] 92.2 fL 80-94 [facility] Erythrocyte Sed Rateon 02-05 SED RATE 2 mm/hr Normal 0-20 [facility] Comment on above: Performed By: #### L 101.9900, L3890.6005, L100.0100, L3100.5450 #### [facility] [address] [place], [place], [id number] Erythrocyte sedimentation ra teOrdered By: Jasmeet Wong on 02-05-2023 ESR (Bld) [Velocity] 2 mm/h 0-20 [facility] HIV - WCHon 02-05-2023 HIV Non-Reactive Normal Nonreactive [facility] Comment on above: Performed By: #### L 101.9900, L3890.6005, L100.0100, L3100.5450 #### [facility] [address] [place], [place], [address] HIV 1 and HIV-2 antibody ass ay with HIV-1 p24 antigen detectionOrdered By: Jasmeet Wong on 02-05-2023 HIV 1+2 Ab+HIV1 p24 Ag IA Ql Non-Reactive Nonreactive [facility] Hematocrit Auto (Bld) [Volum e fraction]Ordered By: Jasmeet Wong on 02-05-2023 Hematocrit (Bld) [Volume fraction] 40.0 % 40-54 [facility] - Hematology and Cell countsOrdered By: Jasmeet Wong on 02-05-2023 Erythrocyte distribution width (RBC) [Entitic vol] 44.1 fL 35.1-43.9 [facility] Erythrocyte distribution width (RBC) [Ratio] 13.2 % 11.6-14.6 [facility] Immature granulocytes/100 WBC (Bld) 0.300 % 0.0-0.9 [facility] Comment on above: IG% - Immature Granu locytes (promyelocytes, myelocytes and metamyelocytes) > 1% indicates that a LEFT SHIFT is Present. MCH (RBC) [Entitic mass] 31.8 pg 27.0-32.0 [facility] Nucleated RBC/100 WBC (Bld) [Ratio] 0 % 0-5 [facility] MCHC Auto (RBC) [Mass/Vol]Or dered By: Jasmeet Wong on 02-05-2023 MCHC (RBC) [Mass/Vol] 34.5 g/dL 32-36 [facility] No Panel InformationOrdered By: Jasmeet Wong on 02-05-2023 Anti-Nuclear Antibody Screen Negative Negative [facility] Comment on above: Performed at: [address] Director: Cal Pettit PhD, Phone: [phone] [employer] B Antibody Not Reportable [facility] TAPPER BALANCE WHEEL SCREW HOLE Antibody Not Reportable [facility] Platelets bldOrdered By: Afshan Wong on 02-05-2023 Platelets (Bld) [#/Vol] 208 10*3/uL 150-450 [facility] Serum DNA double strand anti body assay (units/volume)Ordered By: Jasmeet Wong on 02-05-2023 DNA double strand Ab Qn (S) Not Reportable [facility] Serum Ana-1 antibody assay (u nits/volume)Ordered By: Jasmeet Wong on 02-05-2023 Ana-1 extractable nuclear Ab Qn (S) Not Reportable [facility] Serum Scl-70 extractable nuc lear antibody assay (units/volume)Ordered By: Jasmeet Wong on 02-05-2023 SCL-70 extractable nuclear Ab Qn (S) Not Reportable [facility] Serum Strong extractable nucl ear antibody detectionOrdered By: Jasmeet Wong on 02-05-2023 Strong extractable nuclear Ab Ql (S) Not Reportable [facility] Absolute lymphocyte countOrd ered By: Dr. Pierre on 01-24-2023 Lymphocytes Auto (Unsp spec) [#/Vol] 1.99 10*3/uL 0.83-4.51 [facility] Basic Metabolic Profile (BMP )on 01-24-2023 BUN/CRE 15.4 RATIO Normal 10-20 [facility] Comment on above: Performed By: #### L 500.2500 #### [facility] [address] [place], [address] CA,Total 9.2 mg/dL Normal 8.5-10.1 [facility] Comment on above: Performed By: #### L 500.2500 #### [facility] [address] [place], [address] Chloride [Moles/Vol] 109 mmol/L High 98-107 [facility] Comment on above: Performed By: #### L 500.2500 #### [facility] [address] [place], [address] CO2 [Moles/Vol] 26.0 mmol/L Normal 21.0-32.0 [facility] Comment on above: Performed By: #### L 500.2500 #### [facility] [address] [place], [address] Creatinine [Mass/Vol] 0.97 mg/dL Normal 0.70-1.30 [facility] Comment on above: Result Comment: The validity of the calculated GFR GFRAA in patients over 70 years has not been determined. Clinical correlation is essential. Performed By: #### L 500.2500 #### [facility] [address] [place], [address] ECRCL 59.73 ml/min Normal [facility] Comment on above: Performed By: #### L 500.2500 #### [facility] [address] [place], [address] EST GFR - AA 95 mL/min Normal >60 [facility] Comment on above: Result Comment: Afri can Haitian GFR Calc Performed By: #### L 500.2500 #### [facility] [address] [place], [address] GAP 5 Normal 5-15 [facility] Comment on above: Performed By: #### L 500.2500 #### [facility] [address] [place], [address] GFR/1.73 sq M.predicted among non-blacks MDRD (S/P/Bld) [Vol rate/Area] 79 mL/min/{1.73_m2} Normal >60 [facility] Comment on above: Result Comment: Non- GFR Calc Performed By: #### L 500.2500 #### [facility] [address] [place], [address] Glucose [Mass/Vol] 189 mg/dL High 74-106 [facility] Comment on above: Result Comment: Fast ing Glucose result greater than or equal to 126 mg/dL suggests DIABETES MELLITUS per A.D.A. criteria. Performed By: #### L 500.2500 #### [facility] [address] [place], [address] Potassium [Moles/Vol] 3.9 mmol/L Normal 3.5-5.1 [facility] Comment on above: Result Comment: Slig ht Hemolysis, Result may be falsely increased. Performed By: #### L 500.2500 #### [facility] [address] [place], [address] Sodium [Moles/Vol] 140 mmol/L Normal 136-145 [facility] Comment on above: Performed By: #### L 500.2500 #### [facility] [address] [place], [place], [address] Urea nitrogen [Mass/Vol] 15 mg/dL Normal 7-18 [facility] Comment on above: Performed By: #### L 500.2500 #### [facility] [address] [place], [place], [address] Basophil percentageOrdered B y: Dr. Pierre on 01-24-2023 Basophils/100 WBC (Bld) 0.7 % 0-1 [facility] Chloride [Moles/Vol] 109 mmol/L 98-107 [facility] Eosinophils/100 WBC (Bld) 1.5 % 0-5 [facility] Glucose [Mass/Vol] 189 mg/dL 74-106 [facility] Comment on above: Fasting Glucose resu lt greater than or equal to 126 mg/dL suggests DIABETES MELLITUS per A.D.A. criteria. Neutrophils (Bld) [#/Vol] 4.3 10*3/uL 2.0-7.7 [facility] Neutrophils/100 WBC (Bld) 59.2 % 47-70 [facility] Potassium [Moles/Vol] 3.9 mmol/L 3.5-5.1 [facility] Comment on above: Slight Hemolysis, Re sult may be falsely increased. Sodium [Moles/Vol] 140 mmol/L 136-145 [facility] WBC (Bld) [#/Vol] 7.3 10*3/uL 4.4-11.0 [facility] Blood erythrocytes count (nu mber/volume)Ordered By: Dr. Pierre on 01-24-2023 RBC (Bld) [#/Vol] 4.39 10*6/uL 4.6-6.2 [facility] Blood hemoglobin measurement (mass/volume)Ordered By: Dr. Pierre on 01-24-2023 Hemoglobin (Bld) [Mass/Vol] 13.8 g/dL 13.0-16.5 [facility] Blood lymphocytes/100 leukoc ytesOrdered By: Dr. Pierre on 01-24-2023 Lymphocytes/100 WBC (Bld) 27.4 % 19-41 [facility] Blood monocytes/100 leukocyt esOrdered By: Dr. Pierre on 01-24-2023 Monocytes/100 WBC (Bld) 9.4 % 0-10 [facility] Blood platelet mean volumeOr dered By: Dr. Pierre on 01-24-2023 Platelet mean volume (Bld) [Entitic vol] 9.6 fL 6.2-12.0 [facility] CBC W/Diff, Automatedon 01-05 Absolute Lymph 1.99 X10 3/uL Normal 0.83-4.51 [facility] Comment on above: Performed By: #### L 100.0100 #### [facility] [address] [place], [address] Absolute Neut 4.3 X10 3/uL Normal 2.0-7.7 [facility] Comment on above: Performed By: #### L 100.0100 #### [facility] [address] [place], [address] Basophils/100 WBC (Bld) 0.7 % Normal 0-1 [facility] Comment on above: Performed By: #### L 100.0100 #### [facility] [address] [place], [address] Eosinophils/100 WBC (Bld) 1.5 % Normal 0-5 [facility] Comment on above: Performed By: #### L 100.0100 #### [facility] [address] [place], [address] Erythrocyte distribution width (RBC) [Ratio] 13.2 % Normal 11.6-14.6 [facility] Comment on above: Performed By: #### L 100.0100 #### [facility] [address] [place], [address] Hematocrit (Bld) [Volume fraction] 42.9 % Normal 40-54 [facility] Comment on above: Performed By: #### L 100.0100 #### [facility] [address] [place], [address] Hemoglobin (Bld) [Mass/Vol] 13.8 g/dL Normal 13.0-16.5 [facility] Comment on above: Performed By: #### L 100.0100 #### [facility] [address] [place], [address] IG% 1.800 High 0.0-0.9 [facility] Comment on above: Result Comment: IG% - Immature Granulocytes (promyelocytes, myelocytes and metamyelocytes) > 1% indicates that a LEFT SHIFT is Present. Performed By: #### L 100.0100 #### [facility] [address] [place], [address] Lymphocytes/100 WBC (Bld) 27.4 % Normal 19-41 [facility] Comment on above: Performed By: #### L 100.0100 #### [facility] [address] [place], [address] MCH (RBC) [Entitic mass] 31.4 pg Normal 27.0-32.0 [facility] Comment on above: Performed By: #### L 100.0100 #### [facility] [address] [place], [address] MCHC (RBC) [Mass/Vol] 32.2 g/dL Normal 32-36 [facility] Comment on above: Performed By: #### L 100.0100 #### [facility] [address] [place], [address] MCV (RBC) [Entitic vol] 97.7 fL High 80-94 [facility] Comment on above: Performed By: #### L 100.0100 #### [facility] [address] [place], [address] Monocytes/100 WBC (Bld) 9.4 % Normal 0-10 [facility] Comment on above: Performed By: #### L 100.0100 #### [facility] [address] [place], [address] Neutrophils/100 WBC (Bld) 59.2 % Normal 47-70 [facility] Comment on above: Performed By: #### L 100.0100 #### [facility] [address] [place], [address] Nucleated RBC (Bld) [#/Vol] 0 10*3/uL Normal 0-5 [facility] Comment on above: Performed By: #### L 100.0100 #### [facility] [address] [place], [address] Platelet mean volume (Bld) [Entitic vol] 9.6 fL Normal 6.2-12.0 [facility] Comment on above: Performed By: #### L 100.0100 #### [facility] [address] [place], [address] Platelets (Bld) [#/Vol] 141 10*3/uL Low 150-450 [facility] Comment on above: Performed By: #### L 100.0100 #### [facility] [address] [place], [address] RBC (Bld) [#/Vol] 4.39 10*6/uL Low 4.6-6.2 [facility] Comment on above: Performed By: #### L 100.0100 #### [facility] [address] [place], [address] RDW SD 47.2 fl High 35.1-43.9 [facility] Comment on above: Performed By: #### L 100.0100 #### [facility] [address] [place], [address] WBC (Bld) [#/Vol] 7.3 10*3/uL Normal 4.4-11.0 [facility] Comment on above: Performed By: #### L 100.0100 #### [facility] [address] [place], [address] Determination of erythrocyte mean corpuscular volume (MCV)Ordered By: Dr. Pierre on 01-24-2023 MCV (RBC) [Entitic vol] 97.7 fL 80-94 [facility] Emergency Department Summary on 01-24-2023 Emergency Department Summary [facility] Medical Records Department [address] [place] [address] Emergency Department Summary 01/24/23 MR#: [id number] Acct: [id number] Name: RUEL LAANIZ Rep #: [id number] : 1940 83 From: Eren Pierre DO PCP: Dr. Braden Faith MD Status:REG ER Location: ED HPI History of Present Illness Chief Complaint: Dental [facility] Medical History (Updated 01/24/23 @ 14:[address] Eren Pierre DO) Diabetes mellitus HTN (hypertension) Home Medications metformin 500 mg tablet,extended release 24 hr 08/07/20 [History Last Taken Unknown] metoprolol succinate 25 mg tablet,extended release 24 hr 25 mg PO DAILY ##30 08/07/20 [Rx Last Taken Unknown] Allergy/AdvReac Type Severity Reaction Status Date / Time No Known Allergies Allergy Verified 01/24/23 11:12 Social History Smoking Status: Former smoker EXAM Physical Exam Const Vital Signs: 01/24/23 11:11 Temperature 97.9 F Temperature Source Temporal Pulse Rate 70 Respiratory Rate 16 Blood Pressure 140/80 H Blood Pressure Mean 100 Pulse Ox 98 Oxygen Delivery Method Room Air [facility] MDM Narrative Medical decision making narrative: HISTORY OF PRESENT ILLNESS: 83-year-old male here for left sided facial/jaw swelling for last 3 days. He denies any pain. Denies any dental pain. Denies any vomiting. Denies any drooling. Denies any neck stiffness. Denies any syncope. Denies a history of cancer. Denies any chest pain or shortness of breath REVIEW OF SYSTEMS: Pertinent positives: Swelling Pertinent negatives: Trouble swallowing, drooling PHYSICAL EXAM: Nursing triage notes reviewed, Vital signs reviewed Constitutional: please see mdm HENT: MMM, no evidence of dental abscess, no submandibular edema or induration, no tonsillar exudates or erythema, uvula midline, patient was controlling secretions, no drooling, no trimus, no dysphonia, there is small area of movable tissue in the left angle of the mandible with no overlying skin changes nontender to palpation with no fluctuance or induration Eyes: Pupils equal round and reactive to light, Extraocular muscles intact Neck: No stridor, no JVD, full neck ROM Lungs: Clear to auscultation, No wheezing or rales. No increased work of breathing, no conversational dyspnea, no accessory muscle use, no nasal flaring. No respiratory distress noted Heart: Regular rate and rhythm, No murmurs, No rubs and No gallops, 2+ distal pulses (radial, femoral, posterior tibial) in all extremities MEDICAL DECISION MAKING: Chief Complaint: Jaw swelling External records reviewed: No recent advanced imaging MDM Narrative: The patient was hemodynamically stable, afebrile, nontoxic-appearing. Exam with freely movable mass in the left jaw. I considered the following differential diagnosis: Mass, abscess, lymphadenopathy No oral lesions. No airway compromise trismus or other abnormalities. CT scan was obtained to rule out abscess, mass. CT scan was concerning for lymphadenopathy versus mass. Told patient take Tylenol/ibuprofen I gave strict return precautions. I did make the patient close follow-up with our outpatient oncology clinic called [facility]. Factors affecting care: Type 2 diabetes, hypertension Social determinants of health: Elderly History obtained from others: Shared decision making: I will have a discussion with the patient and or visitors regarding risk/benefits of further testing or admission. They will be made aware of of the risk/benefits inherent in this decision they will be given the opportunity to voice understanding. Consults: None Lab Data Attestation: I reviewed the patient's lab results. Lab results narrative: CBC without leukocytosis, severe anemia, no thrombocytopenia. BMP without evidence of significant electrolyte abnormalities, no anion gap, no acute kidney injury. Labs: Laboratory Results - last 24 hr 01/24/23 01/24/23 12:10 12:10 WBC 7.3 RBC 4.39 L Hgb 13.8 Hct 42.9 MCV 97.7 H MCH 31.4 MCHC 32.2 RDW Std Deviation 47.2 H RDW Coeff of Michelle 13.2 Plt Count 141 L MPV 9.6 Immature Gran % (Auto) 1.800 H Neut % (Auto) 59.2 Lymph % (Auto) 27.4 Beltrami % (Auto) 9.4 Eos % (Auto) 1.5 Baso % (Auto) 0.7 Absolute Neuts (auto) 4.3 Absolute Lymphs (auto) 1.99 Nucleated RBC % 0 Sodium 140 Potassium 3.9 Chloride 109 H Carbon Dioxide 26.0 Anion Gap 5 BUN 15 Creatinine 0.97 Estim Creat Clear Calc 59.73 Est GFR (MDRD) Af Amer 95 Est GFR (MDRD) Non-Af 79 BUN/Creatinine Ratio 15.4 Glucose 189 H Calcium 9.2 Radiography Diagnostic Testing: Clinical Impression(s) from Imaging Studies Soft Tissue Neck CT 01/24/23 12:03 IMPRESSION: Multiple small nodule (more content not included)... Normal [facility] Hematocrit Auto (Bld) [Volum e fraction]Ordered By: Dr. Pierre on 01-24-2023 Hematocrit (Bld) [Volume fraction] 42.9 % 40-54 [facility] - Chemistry and C hemistry - challengeOrdered By: Dr. Pierre on 01-24-2023 CO2 [Moles/Vol] 26.0 mmol/L 21.0-32.0 [facility] Urea nitrogen/Creatinine [Mass ratio] 15.4 mg/mg 10-20 [facility] - Hematology and Cell countsOrdered By: Dr. Pierre on 01-24-2023 Erythrocyte distribution width (RBC) [Entitic vol] 47.2 fL 35.1-43.9 [facility] Erythrocyte distribution width (RBC) [Ratio] 13.2 % 11.6-14.6 [facility] Immature granulocytes/100 WBC (Bld) 1.800 % 0.0-0.9 [facility] Comment on above: IG% - Immature Granu locytes (promyelocytes, myelocytes and metamyelocytes) > 1% indicates that a LEFT SHIFT is Present. MCH (RBC) [Entitic mass] 31.4 pg 27.0-32.0 [facility] Nucleated RBC/100 WBC (Bld) [Ratio] 0 % 0-5 [facility] MCHC Auto (RBC) [Mass/Vol]Or dered By: Dr. Pierre on 01-24-2023 MCHC (RBC) [Mass/Vol] 32.2 g/dL 32-36 [facility] No Panel InformationOrdered By: Dr. Pierre on 01-24-2023 Estimated Creatinine Clearance Calc 59.73 ml/min [facility] Estimated GFR (MDRD) Amer 95 mL/min >60 [facility] Comment on above: GFR Calc Estimated GFR (MDRD) Non-Af Amer 79 mL/min >60 [facility] Comment on above: Non- GFR Calc Platelets bldOrdered By: Dr. Pierre on 01-24-2023 Platelets (Bld) [#/Vol] 141 10*3/uL 150-450 [facility] Serum or plasma calcium maira urement (mass/volume)Ordered By: Dr. Pierer on 01-24-2023 Calcium [Mass/Vol] 9.2 mg/dL 8.5-10.1 [facility] Serum or plasma creatinine m easurement (mass/volume)Ordered By: Dr. Pierre on 01-24-2023 Creatinine [Mass/Vol] 0.97 mg/dL 0.70-1.30 [facility] Comment on above: The validity of the calculated GFR & GFRAA in patients over 70 years has not been determined. Clinical correlation is essential. Serum or plasma urea nitroge n measurement (mass/volume)Ordered By: Dr. Pierre on 01-24-2023 Urea nitrogen [Mass/Vol] 15 mg/dL 7-18 [facility] Soft Tissue Neck WITH Contra ston 01-24-2023 Soft Tissue Neck WITH Contrast [facility] [address] [place] [address] Soft Tissue Neck WITH Contrast MR#: [id number] Acct: [id number] Name: RUEL ALANIZ Rep #: [id number] : 1940 M 83 From: Bisi ha MD PCP: Dr. Braden Faith MD Status: REG ER Study: Soft Tissue Neck WITH Contrast Date of Exam: 0 01/24/23 Exam# [id number] Ordering Dr: Eren Pierre DO HISTORY: left sided neck mass r/o abscess, lymphadenopathy. TECHNIQUE: Helically acquired images were obtained of the neck after the intravenous administration of 75 mL Isovue 300. A radiation dose optimization technique was used for this scan. 276 images. COMPARISON: None. FINDINGS: NASOPHARYNX: Unremarkable. SUPRAHYOID NECK: Unremarkable oropharynx, oral cavity, parapharyngeal space, and retropharyngeal space. INFRAHYOID NECK: Unremarkable larynx, hypopharynx, and supraglottis. THYROID: No focal lesions. SALIVARY GLANDS: Several small bilateral parotid nodules. Mild enlargement of the left submandibular gland compared to the right. Mild subcutaneous edema and thickening of the platysma over the left sublenticular gland without rim-enhancing fluid collection. LYMPH NODES: Mildly enlarged 1.3 cm lymph node at the inferior margin of the left parotid. VASCULAR STRUCTURES: Severe calcified plaque at the right carotid bifurcation. ORBITS: Symmetric visualized contents. VISUALIZED PORTIONS OF THE PARANASAL SINUSES, MASTOID AIR CELLS: Mild fluid in the right mastoid air cells. Left maxillary sinus mucous retention cyst. OSSEOUS STRUCTURES: Degenerative endplate changes of the cervical spine with multiple posterior disc bulge osteophyte complexes resulting in at least moderate spinal canal stenosis. LUNG APICES: Clear. CT/Soft Tissue Neck WITH Contrast IMPRESSION: Multiple small nodules throughout the bilateral parotid glands which may represent intraparotid lymph nodes or benign lymphoepithelial lesions. 1.3 cm nodule at the inferior margin of the left parotid, which may represent mild lymphadenopathy or small salivary gland tumor. Recommend follow-up. Mild subcutaneous edema over the left neck and involving the submandibular gland, likely cellulitis or mild inflammation without evidence for abscess. Severe calcified plaque at the right carotid bifurcation. Technologist reported IV infiltration during examination. Recommend correlation with physical examination of injection site. Electronically Signed: Bisi Walker MD at 13:55 EDT , CC: Dr. Braden Faith MD; Dr. Eren Pierre DO Cheese Blender: Signed Normal [facility] Thin prep Papanicolaou smear with manual screeningOrdered By: Dr. Pierre on 01-24-2023 Thin prep Papanicolaou smear with manual screening 5 5-15 [facility] HBA1C (OUTSIDE)on 01-13-2022 HbA1c (Bld) [Mass fraction] 7.4 % [facility] Cholesterol in LDL Direct as say [Mass/Vol]on 09-13-2021 LDL Cholesterol Direct (LIPOEL) 71 [facility] HBA1C (OUTSIDE)on 09-13-2021 HbA1c (Bld) [Mass fraction] 8.2 % [facility] HBA1C (OUTSIDE)on 04-12-2021 HbA1c (Bld) [Mass fraction] 6.8 % [facility] Vital Signs Date Time Vital Sign Value Performing Clinician Facility 02-18-2025 09:27-0400 Body temperature 97.2 [degF] Dr. Sheldon Bolanos Work Phone: 8(013)880-947675 [place] [address] 02-18-2025 09:27-0400 Diastolic blood pressure 76 mm[Hg] Dr. Sheldon Bolanos Work Phone: 0(678)219-180467 [place] [address] 02-18-2025 09:27-0400 Heart rate 81 /min Dr. Sheldon Bolanos Work Phone: 8(937)615-838675 [place] [address] 02-18-2025 09:27-0400 Respiratory rate 16 /min Dr. Sheldon Bolanos Work Phone: 1(090)435-191567 [place] [address] 02-18-2025 09:27-0400 SaO2% (BldA) [Mass fraction] 100 % Dr. Sheldon Bolanos Work Phone: 3(605)794-905375 [place] [address] 02-18-2025 09:27-0400 Systolic blood pressure 128 mm[Hg] Dr. Sheldon Bolanos Work Phone: 9(251)841-662275 [place] [address] 02-18-2025 08:17-0400 Body height 175.[address] Sheldon Bolanos Work Phone: 9(031)154-637767 [place] [address] 02-18-2025 08:17-0400 Body mass index (BMI) [Ratio] 26.3 kg/m2 Dr. Sheldon Bolanos Work Phone: 9(449)563-327775 [place] [address] 02-18-2025 08:17-0400 Body weight 80.[address] Sheldon Bolanos Work Phone: 0(476)212-503175 [place] [address] 02-11-2024 09:34-0400 Body mass index (BMI) [Ratio] 27.25 kg/m2 Becky Praisler-Wood STITCH SEPARATOR.INCOME TAX ADVISOR Work Phone: [facility] 02-11-2024 09:34-0400 Body temperature 97.7 [degF] Becky Praisler-Wood STITCH SEPARATOR.INCOME TAX ADVISOR Work Phone: [facility] 02-11-2024 09:34-0400 Body weight 83.7 kg Becky Praisler-Wood STITCH SEPARATOR.INCOME TAX ADVISOR Work Phone: [facility] 02-11-2024 09:34-0400 Diastolic blood pressure 78 mm[Hg] Becky Praisler-Wood STITCH SEPARATOR.[facility] Work Phone: [facility] 02-11-2024 09:34-0400 Heart rate 70 /min Becky Praisler-Wood STITCH SEPARATOR.[facility] Work Phone: [facility] 02-11-2024 09:34-0400 Respiratory rate 21 /min Becky Praisler-Wood STITCH SEPARATOR.INCOME TAX ADVISOR Work Phone: [facility] 02-11-2024 09:34-0400 SaO2% (BldA) [Mass fraction] 99 % Becky Praisler-Wood STITCH SEPARATOR.INCOME TAX ADVISOR Work Phone: [facility] 02-11-2024 09:34-0400 Systolic blood pressure 124 mm[Hg] Becky Praisler-Wood STITCH SEPARATOR.INCOME TAX ADVISOR Work Phone: [facility] 12-13-2023 08:48-0400 Body mass index (BMI) [Ratio] 27.67 kg/m2 Becky Praisler-Wood STITCH SEPARATOR.INCOME TAX ADVISOR Work Phone: [facility] 12-13-2023 08:48-0400 Body temperature 98.29 [degF] Becky Praisler-Wood STITCH SEPARATOR.INCOME TAX ADVISOR Work Phone: [facility] 12-13-2023 08:48-0400 Body weight 85 kg Becky Praisler-Wood STITCH SEPARATOR.INCOME TAX ADVISOR Work Phone: [facility] 12-13-2023 08:48-0400 Diastolic blood pressure 79 mm[Hg] Becky Praisler-Wood STITCH SEPARATOR.INCOME TAX ADVISOR Work Phone: [facility] 12-13-2023 08:48-0400 Heart rate 68 /min Becky Praisler-Wood STITCH SEPARATOR.INCOME TAX ADVISOR Work Phone: [facility] 12-13-2023 08:48-0400 Respiratory rate 20 /min Becky Praisler-Wood STITCH SEPARATOR.INCOME TAX ADVISOR Work Phone: [facility] 12-13-2023 08:48-0400 SaO2% (BldA) [Mass fraction] 99 % Becky Praisler-Wood STITCH SEPARATOR.INCOME TAX ADVISOR Work Phone: [facility] 12-13-2023 08:48-0400 Systolic blood pressure 146 mm[Hg] Becky Praisler-Wood STITCH SEPARATOR.INCOME TAX ADVISOR Work Phone: [facility] 10-30-2023 08:43-0400 Body temperature 97.8 [degF] [facility] 10-30-2023 08:43-0400 Diastolic blood pressure 74 mm[Hg] [facility] 10-30-2023 08:43-0400 Heart rate 88 /min [facility] 10-30-2023 08:43-0400 Respiratory rate 16 /min [facility] 10-30-2023 08:43-0400 SaO2% (BldA) [Mass fraction] 97 % [facility] 10-30-2023 08:43-0400 Systolic blood pressure 128 mm[Hg] [facility] 10-30-2023 07:16-0400 Body height 175.26 cm [facility] 10-30-2023 07:16-0400 Body mass index (BMI) [Ratio] 26.6 kg/m2 [facility] 10-30-2023 07:16-0400 Body weight 81.82 kg [facility] 01-24-2023 14:28-0400 Respiratory rate 22 /min [facility] 01-24-2023 11:11-0400 Body height 175.26 cm [facility] 01-24-2023 11:11-0400 Body mass index (BMI) [Ratio] 27.7 kg/m2 [facility] 01-24-2023 11:11-0400 Body temperature 97.9 [degF] [facility] 01-24-2023 11:11-0400 Body weight 85.27 kg [facility] 01-24-2023 11:11-0400 Diastolic blood pressure 80 mm[Hg] [facility] 01-24-2023 11:11-0400 Heart rate 70 /min [facility] 01-24-2023 11:11-0400 SaO2% (BldA) [Mass fraction] 98 % [facility] 01-24-2023 11:11-0400 Systolic blood pressure 140 mm[Hg] [facility] 04-28-2022 08:49-0400 Body temperature 97.9 [degF] Sally Pearl STITCH SEPARATOR.INCOME TAX ADVISOR Work Phone: [facility] 04-28-2022 08:49-0400 Body weight 86.36 kg Sally Pearl STITCH SEPARATOR.INCOME TAX ADVISOR Work Phone: [facility] 04-28-2022 08:49-0400 Diastolic blood pressure 82 mm[Hg] Sally Pearl STITCH SEPARATOR.INCOME TAX ADVISOR Work Phone: [facility] 04-28-2022 08:49-0400 Heart rate 68 /min Sally Pearl STITCH SEPARATOR.INCOME TAX ADVISOR Work Phone: [facility] 04-28-2022 08:49-0400 Respiratory rate 16 /min Sally Pearl STITCH SEPARATOR.INCOME TAX ADVISOR Work Phone: [facility] 04-28-2022 08:49-0400 SaO2% (BldA) [Mass fraction] 99 % Sally Pearl STITCH SEPARATOR.INCOME TAX ADVISOR Work Phone: [facility] 04-28-2022 08:49-0400 Systolic blood pressure 138 mm[Hg] Sally Pearl STITCH SEPARATOR.INCOME TAX ADVISOR Work Phone: [facility] 01-17-2022 13:13-0400 Body height 175.3 cm Braden Faith MD Work Phone: [facility] 01-17-2022 13:13-0400 Body weight 84.82 kg Braden Faith MD Work Phone: [facility] 01-17-2022 13:13-0400 Diastolic blood pressure 70 mm[Hg] Braden Faith MD Work Phone: [facility] 01-17-2022 13:13-0400 Heart rate 68 /min Braden Fiath MD Work Phone: [facility] 01-17-2022 13:13-0400 Respiratory rate 16 /min Braden Faith MD Work Phone: [facility] 01-17-2022 13:13-0400 Systolic blood pressure 124 mm[Hg] Braden Faith MD Work Phone: [facility] Encounters Encounter Date Encounter Type Care Provider Facility Start: 02-18-2025 End: 02-18-2025 Emergency department patient visit Dr. Sheldon Bolanos Work Phone: -Emergency Department Work Phone: Start: 02-11-2024 Telephone encounter Becky Garcia STITCH SEPARATOR.INCOME TAX ADVISOR Work Phone: [place] [facility] Comment on above: Medication Problem ( Wrong pharmacy/) Start: 02-11-2024 End: 02-11-2024 Subsequent hospital visit by physician Xr [facility] [place] Work Phone: Radiology Comment on above: Foot injury, left, i nitial encounter [S99.922A] Start: 02-11-2024 End: 02-11-2024 ambulatory BECKY ROBLES-MERLY Facility:[facility] Start: 02-11-2024 End: 02-11-2024 Patient encounter procedure Becky Robles-Merly STITCH SEPARATOR.INCOME TAX ADVISOR Work Phone: [place] [facility] Comment on above: Foot injury, left, i nitial encounter (Primary Dx) Start: 12-13-2023 End: 12-13-2023 ambulatory BECKY ROBLES-MERLY Facility:[facility] Start: 12-13-2023 End: 12-13-2023 Patient encounter procedure Becky Soler STITCH SEPARATOR.INCOME TAX ADVISOR Work Phone: [place] [facility] Comment on above: Tick bite of scalp, initial encounter (Primary Dx) Start: 10-30-2023 End: 10-30-2023 Emergency department patient visit No Primary Care Physician Facility:[facility] Start: 10-30-2023 End: 10-30-2023 Emergency department patient visit [facility]Emergency Department Work Phone: Start: 02-05-2023 End: 02-05-2023 Patient encounter procedure [facility]Laboratory Work Phone: Start: 02-05-2023 End: 02-05-2023 ambulatory Braden [facility] Work Phone: Start: 01-24-2023 End: 01-24-2023 Emergency department patient visit [facility] Facility:[facility] Start: 01-24-2023 End: 01-24-2023 Emergency department patient visit [facility]Emergency Department Start: 11-14-2022 ambulatory Braden carver MD Work Phone: Internal Medicine [facility] Start: 06-02-2022 Telephone encounter Mara Perez APRN.INCOME TAX ADVISOR Work Phone: Internal Medicine [place] Comment on above: Forms Start: 04-28-2022 End: 04-28-2022 Patient encounter procedure Sally Pearl STITCH SEPARATOR.INCOME TAX ADVISOR Work Phone: [place] [facility] Comment on above: Acute otitis media, right (Primary Dx); Otalgia of both ears Start: 01-17-2022 End: 01-17-2022 Patient encounter procedure Braden Faith MD Work Phone: Family Medicine [place] Comment on above: Type 2 diabetes saad itus without retinopathy (HCC) (Primary Dx); Pure hyperglyceridemia; Primary hypertension Procedures Date Procedure Procedure Detail Performing Clinician Start: 02-11-2024 Radex foot complete minimum 3 views Becky Soler STITCH SEPARATOR.INCOME TAX ADVISOR Work Phone: Start: 01-24-2023 CT of soft tissues o f neck with contrast Start: 01-13-2022 Hemoglobin A1c/Hemoglobin.total in Blood [facility] Start: 09-13-2021 Hemoglobin A1c/Hemoglobin.total in Blood [facility] Start: 09-13-2021 LDL CHOLESTEROL DIR [facility] Provider Start: 04-12-2021 Hemoglobin A1c/Hemoglobin.total in Blood [facility] Provider Start: 10-10-2018 Adult depression scr eening assessment Braden Faith MD Work Phone: Plan of Treatment Date Care Activity Detail Author Start: 10-29-2033 Urine microalbumin profile DTaP,Tdap,Td Vaccine (3 - Td or Tdap) [facility] Start: 05-18-2031 Urine microalbumin profile DTAP,TDAP,TD (2 - Td or Tdap) [facility] Start: 02-18-2025 [facility] Start: 04-06-2024 Covid-19 Vaccine ( season) Covid-19 Vaccine ( season) [facility] Start: 04-06-2024 Influenza vaccination Influenza Vacc ine (#1) [facility] Start: 11-11-2023 Covid-19 Vaccine ( season) Covid-19 Vaccine ( season) [facility] Start: 11-11-2023 Covid-19 Vaccine ( season) Covid-19 Vaccine ( season) [facility] Start: 10-30-2023 [facility] Start: 08-06-2023 Advance Directive Discussion Advance Directive Discussion [facility] Start: 08-06-2023 Behavioral Health Screening Behavioral Health Screening [facility] Start: 04-06-2023 Influenza vaccination INFLUENZ A (Season Ended) [facility] Start: 01-24-2023 Referral to oncologist [facility] Start: 01-17-2023 3 comp foot exam completed DIABETIC FOOT EXAM [facility] Start: 01-17-2023 ANNUAL PCP TEAM CHAINSTITCH HEMMER AVEL DISEASE VISIT ANNUAL PCP TEAM CHRONIC DISEASE VISIT [facility] Start: 01-17-2023 BP CONTROLLED (<130/80) BP CON TROLLED (<130/80) [facility] Start: 01-17-2023 Diabetic foot examination Diabetic Foot Exam [facility] Start: 01-13-2023 Hepatitis B screening URINE ALBUMIN:CREATININE RATIO [facility] Start: 11-14-2022 End: 01-14-2023 ALBUMIN/CREAT RATIO RND UR ALBUMIN/CREAT RATIO RND UR Lab Routine 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 (HCC) Expected: 11/14/2022, Expires: 01/14/2023 [facility] Work Phone: Comment on above: Expected: 11/14/2022 , Expires: 01/14/2023 Start: 11-14-2022 End: 01-14-2023 Hemoglobin A1c in Blood HGB A1C Lab Routine 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 (HCC) Expected: 11/14/2022, Expires: 01/14/2023 [facility] Work Phone: Comment on above: Expected: 11/14/2022 , Expires: 01/14/2023 Start: 09-13-2022 Hepatitis B surface antibody level LDL CHOLESTEROL [facility] Start: 08-06-2022 ADVANCE DIRECTIVE DISCUSSION ADVANCE DIRECTIVE DISCUSSION [facility] Start: 08-06-2022 DEPRESSION ASSESSMENT DEPRESSION ASS ESSMENT [facility] Start: 07-15-2022 Hemoglobin A1c measurement HbA1C [facility] Start: 07-15-2022 Hemoglobin A1c/Hemoglobin.total in Blood HBA1C [facility] Start: 05-15-2022 COVID-19 VACCINE (4 - Booster for Pfizer series) COVID-19 VACCINE (4 - Booster for Pfizer series) [facility] Start: 04-12-2022 Glaucoma screening Dilated Retinal E xam [facility] Start: 04-12-2022 Hepatitis C antibody , confirmatory test DILATED RETINAL EXAM [facility] Start: 04-06-2022 Influenza vaccination INFLUENZA (#1) [facility] Start: 03-10-2022 COVID-19 VACCINE (4 - Booster for Pfizer series) COVID-19 VACCINE (4 - Booster for Pfizer series) [facility] Start: 08-06-2021 DEPRESSION ASSESSMENT DEPRESSION ASS ESSMENT [facility] Start: 10-11-2019 Adult depression screening assessment DEPRESSION SCREENING [facility] Start: 2002 RSV Vaccine (1 - 1-d ose 60+ series) RSV Vaccine (1 - 1-dose 60+ series) [facility] Start: 01-04-1960 Anxiety Screening Anxiety Screening [facility] Start: 01-04-1960 BP CONTROLLED (<130/80) BP CON TROLLED (<130/80) [facility] Start: 01-04-1960 Depression Screening Depression Scre rosemarie [facility] Patient Education [facility] Work Phone: Patient referral [facility] Work Phone: Immunizations Immunization Date Immunization Notes Care Provider Fa shemar 10-30-2023 tetanus toxoid, redu luis diphtheria toxoid, and acellular pertussis vaccine, adsorbed [facility] 07-12-2023 influenza virus vacc ine, unspecified formulation Becky Soler APRN.CNP Work Phone: [facility] 01-13-2022 COVID-19 vaccine, ag e 12+ yr (PFIZER-BIONTECH - PURPLE TOP) Braden Faith MD Work Phone: [facility] 01-13-2022 influenza, high dose seasonal, preservative-free Braden Faith MD Work Phone: [facility] 05-18-2021 tetanus toxoid, redu luis diphtheria toxoid, and acellular pertussis vaccine, adsorbed Braden Faith MD Work Phone: [facility] 10-09-2020 COVID-19 vaccine, ag e 12+ yr (PFIZER-BIONTECH - PURPLE TOP) Braden Faith MD Work Phone: [facility] 09-18-2020 COVID-19 vaccine, ag e 12+ yr (PFIZER-BIONTECH - PURPLE TOP) Braden Faith MD Work Phone: [facility] 02-10-2020 zoster vaccine recombinant Braden Faith MD Work Phone: [facility] 04-22-2019 zoster vaccine recombinant Braden Faith MD Work Phone: [facility] 05-05-2018 influenza, high dose seasonal, preservative-free Braden Faith MD Work Phone: [facility] 05-19-2016 influenza, high dose seasonal, preservative-free Braden Faith MD Work Phone: [facility] 03-24-2016 zoster vaccine, live Braden burnett MD Work Phone: [facility] 05-11-2015 influenza, high dose seasonal, preservative-free Braden Faith MD Work Phone: [facility] 05-11-2015 pneumococcal conjuga te vaccine, 13 valent Braden Faith MD Work Phone: [facility] 04-16-2014 pneumococcal polysaccharide vaccine, 23 valent Braden Faith MD Work Phone: [facility] 08-14-2012 influenza virus vacc ine, unspecified formulation Braden Faith MD Work Phone: [facility] 05-16-2010 influenza virus vacc ine, unspecified formulation Braden Faith MD Work Phone: [facility] 05-07-2009 influenza virus vacc ine, unspecified formulation Braden Faith MD Work Phone: [facility] 02-27-2008 tetanus and diphther ia toxoids, adsorbed, preservative free, for adult use (2 Lf of tetanus toxoid and 2 Lf of diphtheria toxoid) Braden Faith MD Work Phone: [facility] 08-21-2006 influenza virus vacc ine, unspecified formulation Braden Faith MD Work Phone: [facility] Payers Date Payer Category Payer Self-pay [id number] 2023 Unknown [id number] 2020 Medicare UHC MEDICARE UHC MEDICARE ADVANTAGE PPO [id number] 2020-Present [phone] [address] [address] [place] [address] PPO [id number] 2020 Medicare UHC MEDICARE UHC MEDICARE ADVANTAGE PPO [id number] 2020-Present [phone] [address] [address] [place] [address] PPO [id number] 2020 Unknown [id number] Medicare [id number] Unknown [id number] Unknown [id number] Unknown [id number] Unknown [id number] Social History Date Type Detail Facility Start: 04-28-2022 End: 02-18-2025 Tobacco smoking status NHIS Ex-smoker [facility] End: 08-06-1984 History of tobacco use Current smoker [facility] Start: 01-17-2022 End: 02-11-2024 Alcohol intake Ex-drinker (finding) [facility] Start: 1940 Sex Assigned At Not on file [facility] Start: 01-07-2022 End: 05-09-2022 Exposure to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
--- OUTSIDE RECORDS SUMMARY | 2025-02-18 11:25 | XMS RPT_ITS | CCD ---
Author Organization [facility] Care Team Providers Care Assisted Living Assistant Name Role Phone Braden Faith MD Primary Care Provider [phone] Braden Faith Primary Care Unavailable Jasmeet Wong Attending Jasmeet Richmond Referring [facility] e Care Physician, No Primary Primary Care Unava ilable Krish Langford Attending Unavailable Braden Faith Primary Care Unavailable Eren Pierre Attending Unavailable ([facility]), [facility] Primary Care Provider Unavailable BECKY SOLER Referring Unavailable Dr. Sheldon Black DO Emergency Provider [phone] [place] [address], [place] Primary Care Provider Unavailabl e Allergies Allergy Classification Reported Allergen(s) Allergy Type Date of Onset Reaction(s) Facility (2 sources) Angiotensin-conve rting enzyme inhibitor agent; Translations: [DICK INHIBITORS] Drug Allergy 09-22-2020 Angioedema [facility] Work Phone: (7 sources) Angiotensin-conve rting enzyme inhibitor agent Drug Allergy 09-22-2020 Angioedema [facility] Work Phone: Medications Current Medications Medication Drug [...] Comment on above: Take 1 tablet by rloanda th daily at bedtime. For cholesterol. Back Brace misc (8 sources) Start: 0 Back Brace misc Ringling back brace; Use as directed. M51.36, Degenerative Disk Disease, Lumbar Spine 1 Each 06/21/2020 Active Start: 06-21-2020 Back Brace mis c Ringling back brace; Use as directed. M51.36, Degenerative Disk Disease, Lumbar Spine 1 Each 0 06/21/2020 Active Comment on above: Ringling back brace; Us e as directed. M51.36, [...] to affected ar ea three times daily. Sysnj-8-ZRK-EPA-Fish Oil 1,000 mg (120 mg-180 mg) cap (7 sources) Start: 2021 Niyxe-0-IUO-EPA-Fish Oil 1,000 mg (120 mg-180 mg) cap Take 2 pills twice daily. 01/17/2022 Active Start: 01-17-2022 Wmhfh-1-NTH-EP A-Fish Oil 1,000 mg (120 mg-180 mg) [...] Drug Class(es) Dates Sig (Normalized) Sig (Original) Upnce-2-MDC-EPA-Fis h Oil (FISH OIL) 1,000 mg (120 mg-180 mg) cap (1 source) Start: 01-17-2022 Ylhza-0-LLJ-EPA-Fi sh Oil (FISH OIL) 1,000 mg (120 [...] CNOV Office Visit (UCWSTR ) RUEL ALANIZ ([id number]) 1940 M Date Time Provider Department 02/11/24 9:30 AM BCEKY SOLER [facility] During your visit today, we recorded the following information about you: Temperature Pulse Respiration Blood pressure 97.7 degrees 70/minute 21/minute 124/78 Weight 83.7 kg Becky Soler APRN.[facility] 02/11/2024 10:54 AM Signed Subjective Trauma Pertinent [...] nostril once daily. Rinse mouth after use. Zuslp-5-GSN-EPA-Fish Oil 1,000 mg (120 mg-180 mg) cap [...] tablet by mouth once daily. Back Brace [facility] Ringling back brace; Use as directed. M51.36, Degenerative [...] No radiographic evidence of acute osseous injury Cable Television Technician: AUNG Transcribe Date/Time: Feb 11 2024 10:34A Dictated by : ROMERO SCHOFIELD MD Post op shoe recommended. Prescription printed for patient. - Follow-up with your PCP in 3-5 days if symptoms have not improved or sooner if symptoms worsen - Discussed red flags and need for immediate medical evaluation if any occur. (more content not included)... Normal [facility] CNPNon 02-11-2024 [facility] Telephone (UCTR) RUEL AALNIZ ([id number]) 1940 M Date Time Provider Department 02/11/24 BECKY SOLER [facility] During your visit today, we recorded the following information about you: Meche Jurado 02/11/2024 1:39 PM Signed Patient called requesting to please send Rx to [facility] in [place] Please advise Thank you Becky Soler APRN.[employer] 02/11/2024 1:41 PM Signed Prescription sent to [facility] in [place]. Becky Soler APRN.[employer] Allergies As of Date: 02/11/2024 Noted Allergy [...] once daily. Rinse mouth after use. - Kyano-9-AQD-EPA-Fish Oil 1,000 mg (120 mg-180 mg) cap [...] mouth once daily. - Back Brace misc Ringling back brace; Use as directed. M51.36, Degenerative [...] Status:Closed by BECKY SOLER on 02/11/24 Normal [facility] XR FOOT 3V AP/LAT/OBL LTon 0 02-11-2024 [...] No radiographic evidence of acute osseous injury Cable Television Technician: PSCB Transcribe Date/Time: Feb 11 2024 10:34A Dictated by : ROMERO SCHOFIELD MD This examination was interpreted and the report reviewed and electronically signed by: ROMERO SCHOFIELD MD on Feb 11 2024 10:36AM EST [id number] Normal [facility] XR Foot - left AP and Latera l and obliqueon 02-11-2024 IMPRESSION: No radiographic evidence of acute osseous injury Cable Television Technician: [facility] Transcribe Date/Time: Feb 11 2024 10:34A Dictated by : ROMERO SCHOFIELD MD This examination was interpreted and the report reviewed and electronically signed by: ROMERO SCHOFIELD MD on Feb 11 2024 10:36AM [facility] DIVISION OF RADIOLOGY * * [...] of the vasculature. DIVISION OF RADIOLOGY Provider, [facility] - 02/11/2024 * * *Final Report* * [...] No radiographic evidence of acute osseous injury Cable Television Technician: [facility] Transcribe Date/Time: Feb 11 2024 10:34A Dictated by : ROMERO SCHOFIELD MD This examination was interpreted and the report reviewed and electronically signed by: ROMERO SCHOFIELD MD on Feb 11 2024 10:36AM EST [facility] Radiology Study observation (narrative) [facility] XR Foot - left AP and Latera l and obliqueOrdered By: Ccf Provider on 02-11-2024 [facility] CNOVon 12-13-2023 CNOV Office Visit (UCWSTR ) RUEL ALANIZ ([id number]) 1940 M Date Time Provider Department 12/13/23 8:45 AM BECKY SOLER [facility] During your visit today, we recorded the following information about you: Temperature Pulse Respiration Blood pressure 98.3 degrees 68/minute 20/minute 146/79 Weight 85 kg Becky Soler APRN.[employer] 12/13/2023 9:00 AM Signed ASSESSMENT/PLAN: 1. Tick [...] feet Problems with short-term memory Becky Soler APRN.[employer] 12/13/2023 9:10 AM Signed Subjective HPI Ruel [...] Systems Constitutio (more content not included)... Normal [facility] Emergency Department Summary on 10-30-2023 Emergency Department Summary [facility] Medical Records Department [address] [place] [address] Emergency Department Summary 10/30/23 MR#: [id number] Acct: [id number] Name: RUEL ALANIZ Rep #: [id number] : 1940 83 From: Krish Langford DO [...] dominant. Is unsure of his last tetanus. [facility] Medical History (Updated 10/30/23 @ 07:53 by [...] The f (more content not included)... Normal [facility] LOLLY w/ Reflex Mult Confirmon 02-08-2023 LOLLY,DIRECT Negative Normal Negative [facility] Comment on above: Result Comment: Perf ormed at: CB - [facility] [address] [id number] Consumer Sales Representative: Cal Pettit PhD, Phone: [phone] Performed By: #### L 101.2958, X1875.5351, L100.6288, L3232.2805 #### [facility] [address] [place], [address] Absolute lymphocyte countOrd ered By: Jasmeet Wong on 02-05-2023 Lymphocytes Auto (Unsp spec) [#/Vol] 2.41 10*3/uL 0.83-4.51 [facility] Basophil percentageOrdered B y: Jasmeet Wong on 02-05-2023 Basophil percentage Not Reportable [facility] Basophils/100 WBC (Bld) 0.7 % 0-1 [facility] Eosinophils/100 WBC (Bld) 1.8 % 0-5 [facility] Neutrophils (Bld) [#/Vol] 4.1 10*3/uL 2.0-7.7 [facility] Neutrophils/100 WBC (Bld) 55.5 % 47-70 [facility] WBC (Bld) [#/Vol] 7.4 10*3/uL 4.4-11.0 [facility] Blood erythrocytes count (nu mber/volume)Ordered By: Jasmeet Wong on 02-05-2023 RBC (Bld) [#/Vol] 4.34 10*6/uL 4.6-6.2 [facility] Blood hemoglobin measurement (mass/volume)Ordered By: Jasmeet Wong on 02-05-2023 Hemoglobin (Bld) [Mass/Vol] 13.8 g/dL 13.0-16.5 [facility] Blood lymphocytes/100 leukoc ytesOrdered By: Jasmeet Wong on 02-05-2023 Lymphocytes/100 WBC (Bld) 32.5 % 19-41 [facility] Blood monocytes/100 leukocyt esOrdered By: Jasmeet Wong on 02-05-2023 Monocytes/100 WBC (Bld) 9.2 % 0-10 [facility] Blood platelet mean volumeOr dered By: Jasmeet Wong on 02-05-2023 Platelet mean volume (Bld) [Entitic vol] 9.4 fL 6.2-12.0 [facility] CBC W/Diff, Automatedon 07-0 Absolute Lymph 2.41 X10 3/uL Normal 0.83-4.51 [facility] Comment on above: Performed By: #### L 101.9900, L3890.6005, L100.0100, L3100.5450 #### [facility] [address] [place], [address] Absolute Neut 4.1 X10 3/uL Normal 2.0-7.7 [facility] Comment on above: Performed By: #### L 101.9900, L3890.6005, L100.0100, L3100.5450 #### [facility] [address] [place], [address] Basophils/100 WBC (Bld) 0.7 % Normal 0-1 [facility] Comment on above: Performed By: #### L 101.9900, L3890.6005, L100.0100, L3100.5450 #### [facility] [address] [place], [address] Eosinophils/100 WBC (Bld) 1.8 % Normal 0-5 [facility] Comment on above: Performed By: #### L 101.9900, L3890.6005, L100.0100, L3100.5450 #### [facility] [address] [place], [address] Erythrocyte distribution width (RBC) [Ratio] 13.2 % Normal 11.6-14.6 [facility] Comment on above: Performed By: #### L 101.9900, L3890.6005, L100.0100, L3100.5450 #### [facility] [address] [place], [address] Hematocrit (Bld) [Volume fraction] 40.0 % Normal 40-54 [facility] Comment on above: Performed By: #### L 101.9900, L3890.6005, L100.0100, L3100.5450 #### [facility] [address] [place], [address] Hemoglobin (Bld) [Mass/Vol] 13.8 g/dL Normal 13.0-16.5 [facility] Comment on above: Performed By: #### L 101.9900, L3890.6005, L100.0100, L3100.5450 #### [facility] [address] [place], [address] IG% 0.300 Normal 0.0-0.9 [facility] Comment on above: Result Comment: IG% - Immature Granulocytes (promyelocytes, myelocytes and metamyelocytes) > 1% indicates that a LEFT SHIFT is Present. Performed By: #### L 101.9900, L3890.6005, L100.0100, L3100.5450 #### [facility] [address] [place], [address] Lymphocytes/100 WBC (Bld) 32.5 % Normal 19-41 [facility] Comment on above: Performed By: #### L 101.9900, L3890.6005, L100.0100, L3100.5450 #### [facility] [address] [place], [address] MCH (RBC) [Entitic mass] 31.8 pg Normal 27.0-32.0 [facility] Comment on above: Performed By: #### L 101.9900, L3890.6005, L100.0100, L3100.5450 #### [facility] [address] [place], [address] MCHC (RBC) [Mass/Vol] 34.5 g/dL Normal 32-[address] [facility] Comment on above: Performed By: #### L 101.9900, L3890.6005, L100.0100, L3100.5450 #### [facility] [address] [place], [address] MCV (RBC) [Entitic vol] 92.2 fL Normal 80-94 [facility] Comment on above: Performed By: #### L 101.9900, L3890.6005, L100.0100, L3100.5450 #### [facility] [address] [place], [address] Monocytes/100 WBC (Bld) 9.2 % Normal 0-10 [facility] Comment on above: Performed By: #### L 101.9900, L3890.6005, L100.0100, L3100.5450 #### [facility] [address] [place], [address] Neutrophils/100 WBC (Bld) 55.5 % Normal 47-70 [facility] Comment on above: Performed By: #### L 101.9900, L3890.6005, L100.0100, L3100.5450 #### [facility] [address] [place], [address] Nucleated RBC (Bld) [#/Vol] 0 10*3/uL Normal 0-5 [facility] Comment on above: Performed By: #### L 101.9900, L3890.6005, L100.0100, L3100.5450 #### [facility] [address] [place], [address] Platelet mean volume (Bld) [Entitic vol] 9.4 fL Normal 6.2-12.0 [facility] Comment on above: Performed By: #### L 101.9900, L3890.6005, L100.0100, L3100.5450 #### [facility] [address] [place], [address] Platelets (Bld) [#/Vol] 208 10*3/uL Normal 150-450 [facility] Comment on above: Performed By: #### L 101.9900, L3890.6005, L100.0100, L3100.5450 #### [facility] [address] [place], [address] RBC (Bld) [#/Vol] 4.34 10*6/uL Low 4.6-6.2 [facility] Comment on above: Performed By: #### L 101.9900, L3890.6005, L100.0100, L3100.5450 #### [facility] [address] [place], [address] RDW SD 44.1 fl High 35.1-43.9 [facility] Comment on above: Performed By: #### L 101.9900, L3890.6005, L100.0100, L3100.5450 #### [facility] [address] [place], [place], [address] WBC (Bld) [#/Vol] 7.4 10*3/uL Normal 4.4-11.0 [facility] Comment on above: Performed By: #### L 101.9900, L3890.6005, L100.0100, L3100.5450 #### [facility] [address] [place], [place], [address] Determination of erythrocyte mean corpuscular volume (MCV)Ordered By: Jasmeet Wong on 02-05-2023 MCV (RBC) [Entitic vol] 92.2 fL 80-94 [facility] Erythrocyte Sed Rateon 02-05 SED RATE 2 mm/hr Normal 0-20 [facility] Comment on above: Performed By: #### L 101.9900, L3890.6005, L100.0100, L3100.5450 #### [facility] [address] [place], [place], [address] Erythrocyte sedimentation ra teOrdered By: Jasmeet Wong on 02-05-2023 ESR (Bld) [Velocity] 2 mm/h 0-20 [facility] HIV - WCHon 02-05-2023 HIV Non-Reactive Normal Nonreactive [facility] Comment on above: Performed By: #### L 101.9900, L3890.6005, L100.0100, L3100.5450 #### [facility] [address] [place], [place], [address] HIV 1 and HIV-2 antibody ass ay with HIV-1 p24 antigen detectionOrdered By: Jasmeet Wong on 02-05-2023 HIV 1+2 Ab+HIV1 p24 Ag IA Ql Non-Reactive Nonreactive [facility] Hematocrit Auto (Bld) [Volum e fraction]Ordered By: Jasmeet Wong on 02-05-2023 Hematocrit (Bld) [Volume fraction] 40.0 % 40-54 [facility] - Hematology and Cell countsOrdered By: Jasmeet Wong on 02-05-2023 Erythrocyte distribution width (RBC) [Entitic vol] 44.1 fL 35.1-43.9 [facility] Erythrocyte distribution width (RBC) [Ratio] 13.2 % 11.6-14.6 [facility] Immature granulocytes/100 WBC (Bld) 0.300 % 0.0-0.9 [facility] Comment on above: IG% - Immature Granu locytes (promyelocytes, myelocytes and metamyelocytes) > 1% indicates that a LEFT SHIFT is Present. MCH (RBC) [Entitic mass] 31.8 pg 27.0-32.0 [facility] Nucleated RBC/100 WBC (Bld) [Ratio] 0 % 0-5 [facility] MCHC Auto (RBC) [Mass/Vol]Or dered By: Jasmeet Wong on 02-05-2023 MCHC (RBC) [Mass/Vol] 34.5 g/dL 32-[address] [facility] No Panel InformationOrdered By: Jasmeet Wong on 02-05-2023 Anti-Nuclear Antibody Screen Negative Negative [facility] Comment on above: Performed at: [address] Director: Cal Pettit PhD, Phone: [phone] [employer] B Antibody Not Reportable [facility] DIRECTOR COMMERCIAL SALES Antibody Not Reportable [facility] Platelets bldOrdered By: Afshan Wong on 02-05-2023 Platelets (Bld) [#/Vol] 208 10*3/uL 150-450 [facility] Serum DNA double strand anti body assay (units/volume)Ordered By: Jasmeet Wong on 02-05-2023 DNA double strand Ab Qn (S) Not Reportable [facility] Serum Ana-1 antibody assay (u nits/volume)Ordered By: Jasmeet Wong on 02-05-2023 Ana-1 extractable nuclear Ab Qn (S) Not Reportable [facility] Serum Scl-70 extractable nuc lear antibody assay (units/volume)Ordered By: Jasmeet Wong on 02-05-2023 SCL-70 extractable nuclear Ab Qn (S) Not Reportable [facility] Serum Strong extractable nucl ear antibody detectionOrdered By: Jasmeet Wong on 02-05-2023 Strong extractable nuclear Ab Ql (S) Not Reportable [facility] Absolute lymphocyte countOrd ered By: Dr. Pierre on 01-24-2023 Lymphocytes Auto (Unsp spec) [#/Vol] 1.99 10*3/uL 0.83-4.51 [facility] Basic Metabolic Profile (BMP )on 01-24-2023 BUN/CRE 15.4 RATIO Normal 10-20 [facility] Comment on above: Performed By: #### L 500.2500 #### [facility] [address] [place], [address] CA,Total 9.2 mg/dL Normal 8.5-10.1 [facility] Comment on above: Performed By: #### L 500.2500 #### [facility] [address] [place], [address] Chloride [Moles/Vol] 109 mmol/L High 98-107 [facility] Comment on above: Performed By: #### L 500.2500 #### [facility] [address] [place], [address] CO2 [Moles/Vol] 26.0 mmol/L Normal 21.0-32.0 [facility] Comment on above: Performed By: #### L 500.2500 #### [facility] [address] [place], [address] Creatinine [Mass/Vol] 0.97 mg/dL Normal 0.70-1.[address] [facility] Comment on above: Result Comment: The validity of the calculated GFR GFRAA in patients over 70 years has not been determined. Clinical correlation is essential. Performed By: #### L 500.2500 #### [facility] [address] [place], [address] ECRCL 59.73 ml/min Normal [facility] Comment on above: Performed By: #### L 500.2500 #### [facility] [address] [place], [address] EST GFR - AA 95 mL/min Normal >60 [facility] Comment on above: Result Comment: Afri can Haitian GFR Calc Performed By: #### L 500.2500 #### [facility] [address] [place], [address] GAP 5 Normal 5-15 [facility] Comment on above: Performed By: #### L 500.2500 #### [facility] [address] [place], [address] GFR/1.73 sq M.predicted among non-blacks MDRD (S/P/Bld) [Vol rate/Area] 79 mL/min/{1.73_m2} Normal >60 [facility] Comment on above: Result Comment: Non- GFR Calc Performed By: #### L 500.2500 #### [facility] [address] [place], [address] Glucose [Mass/Vol] 189 mg/dL High 74-106 [facility] Comment on above: Result Comment: Fast ing Glucose result greater than or equal to 126 mg/dL suggests DIABETES MELLITUS per A.D.A. criteria. Performed By: #### L 500.2500 #### [facility] [address] [place], [address] Potassium [Moles/Vol] 3.9 mmol/L Normal 3.5-5.[address] [facility] Comment on above: Result Comment: Slig ht Hemolysis, Result may be falsely increased. Performed By: #### L 500.2500 #### [facility] [address] [place], [address] Sodium [Moles/Vol] 140 mmol/L Normal 136-145 [facility] Comment on above: Performed By: #### L 500.2500 #### [facility] [address] [place], [place], [address] Urea nitrogen [Mass/Vol] 15 mg/dL Normal 7-18 [facility] Comment on above: Performed By: #### L 500.2500 #### [facility] [address] [place], [place], [address] Basophil percentageOrdered B y: Dr. Pierre on 01-24-2023 Basophils/100 WBC (Bld) 0.7 % 0-1 [facility] Chloride [Moles/Vol] 109 mmol/L 98-107 [facility] Eosinophils/100 WBC (Bld) 1.5 % 0-5 [facility] Glucose [Mass/Vol] 189 mg/dL 74-106 [facility] Comment on above: Fasting Glucose resu lt greater than or equal to 126 mg/dL suggests DIABETES MELLITUS per A.D.A. criteria. Neutrophils (Bld) [#/Vol] 4.3 10*3/uL 2.0-7.7 [facility] Neutrophils/100 WBC (Bld) 59.2 % 47-70 [facility] Potassium [Moles/Vol] 3.9 mmol/L 3.5-5.[address] [facility] Comment on above: Slight Hemolysis, Re sult may be falsely increased. Sodium [Moles/Vol] 140 mmol/L 136-145 [facility] WBC (Bld) [#/Vol] 7.3 10*3/uL 4.4-11.0 [facility] Blood erythrocytes count (nu mber/volume)Ordered By: Dr. Pierre on 01-24-2023 RBC (Bld) [#/Vol] 4.39 10*6/uL 4.6-6.2 [facility] Blood hemoglobin measurement (mass/volume)Ordered By: Dr. Pierre on 01-24-2023 Hemoglobin (Bld) [Mass/Vol] 13.8 g/dL 13.0-16.5 [facility] Blood lymphocytes/100 leukoc ytesOrdered By: Dr. Pierre on 01-24-2023 Lymphocytes/100 WBC (Bld) 27.4 % 19-41 [facility] Blood monocytes/100 leukocyt esOrdered By: Dr. Pierre on 01-24-2023 Monocytes/100 WBC (Bld) 9.4 % 0-10 [facility] Blood platelet mean volumeOr dered By: Dr. Pierre on 01-24-2023 Platelet mean volume (Bld) [Entitic vol] 9.6 fL 6.2-12.0 [facility] CBC W/Diff, Automatedon 01-05 Absolute Lymph 1.99 X10 3/uL Normal 0.83-4.51 [facility] Comment on above: Performed By: #### L 100.0100 #### [facility] [address] [place], [address] Absolute Neut 4.3 X10 3/uL Normal 2.0-7.7 [facility] Comment on above: Performed By: #### L 100.0100 #### [facility] [address] [place], [address] Basophils/100 WBC (Bld) 0.7 % Normal 0-1 [facility] Comment on above: Performed By: #### L 100.0100 #### [facility] [address] [place], [address] Eosinophils/100 WBC (Bld) 1.5 % Normal 0-5 [facility] Comment on above: Performed By: #### L 100.0100 #### [facility] [address] [place], [address] Erythrocyte distribution width (RBC) [Ratio] 13.2 % Normal 11.6-14.6 [facility] Comment on above: Performed By: #### L 100.0100 #### [facility] [address] [place], [address] Hematocrit (Bld) [Volume fraction] 42.9 % Normal 40-54 [facility] Comment on above: Performed By: #### L 100.0100 #### [facility] [address] [place], [address] Hemoglobin (Bld) [Mass/Vol] 13.8 g/dL Normal 13.0-16.5 [facility] Comment on above: Performed By: #### L 100.0100 #### [facility] [address] [place], [address] IG% 1.800 High 0.0-0.9 [facility] Comment on above: Result Comment: IG% - Immature Granulocytes (promyelocytes, myelocytes and metamyelocytes) > 1% indicates that a LEFT SHIFT is Present. Performed By: #### L 100.0100 #### [facility] [address] [place], [address] Lymphocytes/100 WBC (Bld) 27.4 % Normal 19-41 [facility] Comment on above: Performed By: #### L 100.0100 #### [facility] [address] [place], [address] MCH (RBC) [Entitic mass] 31.4 pg Normal 27.0-32.0 [facility] Comment on above: Performed By: #### L 100.0100 #### [facility] [address] [place], [address] MCHC (RBC) [Mass/Vol] 32.2 g/dL Normal 32-[address] [facility] Comment on above: Performed By: #### L 100.0100 #### [facility] [address] [place], [address] MCV (RBC) [Entitic vol] 97.7 fL High 80-94 [facility] Comment on above: Performed By: #### L 100.0100 #### [facility] [address] [place], [address] Monocytes/100 WBC (Bld) 9.4 % Normal 0-10 [facility] Comment on above: Performed By: #### L 100.0100 #### [facility] [address] [place], [address] Neutrophils/100 WBC (Bld) 59.2 % Normal 47-70 [facility] Comment on above: Performed By: #### L 100.0100 #### [facility] [address] [place], [address] Nucleated RBC (Bld) [#/Vol] 0 10*3/uL Normal 0-5 [facility] Comment on above: Performed By: #### L 100.0100 #### [facility] [address] [place], [address] Platelet mean volume (Bld) [Entitic vol] 9.6 fL Normal 6.2-12.0 [facility] Comment on above: Performed By: #### L 100.0100 #### [facility] [address] [place], [address] Platelets (Bld) [#/Vol] 141 10*3/uL Low 150-450 [facility] Comment on above: Performed By: #### L 100.0100 #### [facility] [address] [place], [address] RBC (Bld) [#/Vol] 4.39 10*6/uL Low 4.6-6.2 [facility] Comment on above: Performed By: #### L 100.0100 #### [facility] [address] [place], [address] RDW SD 47.2 fl High 35.1-43.9 [facility] Comment on above: Performed By: #### L 100.0100 #### [facility] [address] [place], [address] WBC (Bld) [#/Vol] 7.3 10*3/uL Normal 4.4-11.0 [facility] Comment on above: Performed By: #### L 100.0100 #### [facility] [address] [place], [address] Determination of erythrocyte mean corpuscular volume (MCV)Ordered By: Dr. Pierre on 01-24-2023 MCV (RBC) [Entitic vol] 97.7 fL 80-94 [facility] Emergency Department Summary on 01-24-2023 Emergency Department Summary [facility] Medical Records Department [address] [place] [address] Emergency Department Summary 01/24/23 MR#: [id number] Acct: [id number] Name: RUEL ALANIZ Rep #: [id number] : 1940 83 From: Eren Pierre DO PCP: Dr. Braden Faith MD Status:REG ER Location: ED HPI History of Present Illness Chief Complaint: Dental [facility] Medical History (Updated 01/24/23 @ 14:01 by [...] Ox 98 Oxygen Delivery Method Room Air [facility] MDM Narrative Medical decision making narrative: [...] % (Auto) 59.2 Lymph % (Auto) 27.4 Mcmullen % (Auto) 9.4 Eos % (Auto) 1.5 [...] small nodule (more content not included)... Normal [facility] Hematocrit Auto (Bld) [Volum e fraction]Ordered By: Dr. Pierre on 01-24-2023 Hematocrit (Bld) [Volume fraction] 42.9 % 40-54 [facility] - Chemistry and C hemistry - challengeOrdered By: Dr. Pierre on 01-24-2023 CO2 [Moles/Vol] 26.0 mmol/L 21.0-32.0 [facility] Urea nitrogen/Creatinine [Mass ratio] 15.4 mg/mg 10-20 [facility] - Hematology and Cell countsOrdered By: Dr. Pierre on 01-24-2023 Erythrocyte distribution width (RBC) [Entitic vol] 47.2 fL 35.1-43.9 [facility] Erythrocyte distribution width (RBC) [Ratio] 13.2 % 11.6-14.6 [facility] Immature granulocytes/100 WBC (Bld) 1.800 % 0.0-0.9 [facility] Comment on above: IG% - Immature Granu locytes (promyelocytes, myelocytes and metamyelocytes) > 1% indicates that a LEFT SHIFT is Present. MCH (RBC) [Entitic mass] 31.4 pg 27.0-32.0 [facility] Nucleated RBC/100 WBC (Bld) [Ratio] 0 % 0-5 [facility] MCHC Auto (RBC) [Mass/Vol]Or dered By: Dr. Pierre on 01-24-2023 MCHC (RBC) [Mass/Vol] 32.2 g/dL 32-[address] [facility] No Panel InformationOrdered By: Dr. Pierre on 01-24-2023 Estimated Creatinine Clearance Calc 59.73 ml/min [facility] Estimated GFR (MDRD) Amer 95 mL/min >60 [facility] Comment on above: GFR Calc Estimated GFR (MDRD) Non-Af Amer 79 mL/min >60 [facility] Comment on above: Non- GFR Calc Platelets bldOrdered By: Dr. Pierre on 01-24-2023 Platelets (Bld) [#/Vol] 141 10*3/uL 150-450 [facility] Serum or plasma calcium maira urement (mass/volume)Ordered By: Dr. Pierre on 01-24-2023 Calcium [Mass/Vol] 9.2 mg/dL 8.5-10.1 [facility] Serum or plasma creatinine m easurement (mass/volume)Ordered By: Dr. Pierre on 01-24-2023 Creatinine [Mass/Vol] 0.97 mg/dL 0.70-1.[address] [facility] Comment on above: The validity of the calculated GFR & GFRAA in patients over 70 years has not been determined. Clinical correlation is essential. Serum or plasma urea nitroge n measurement (mass/volume)Ordered By: Dr. Pierre on 01-24-2023 Urea nitrogen [Mass/Vol] 15 mg/dL 7-18 [facility] Soft Tissue Neck WITH Contra ston 01-24-2023 Soft Tissue Neck WITH Contrast [facility] Imaging Services [address] [place] [address] Soft Tissue Neck WITH Contrast MR#: [id number] Acct: [id number] Name: RUEL ALANIZ Rep #: [id number] : 1940 M 83 From: Bisi ha MD PCP: Dr. Braden Faith MD Status: REG ER Study: Soft Tissue Neck WITH Contrast Date of Exam: 0 01/24/23 Exam# [id number] Ordering Dr: Eren Pierre DO HISTORY: left [...] Braden Faith MD; Dr. Eren Pierre DO Cable Television Technician: Signed Normal [facility] Thin prep Papanicolaou smear with manual screeningOrdered By: Dr. Pierre on 01-24-2023 Thin prep Papanicolaou smear with manual screening 5 5-15 [facility] HBA1C (OUTSIDE)on 01-13-2022 HbA1c (Bld) [Mass fraction] 7.4 % [facility] Cholesterol in LDL Direct as say [Mass/Vol]on 09-13-2021 LDL Cholesterol Direct (LIPOEL) 71 [facility] HBA1C (OUTSIDE)on 09-13-2021 HbA1c (Bld) [Mass fraction] 8.2 % [facility] HBA1C (OUTSIDE)on 04-12-2021 HbA1c (Bld) [Mass fraction] 6.8 % [facility] Vital Signs Date Time Vital Sign Value Performing Clinician Facility 02-18-2025 09:27-0400 Body temperature 97.2 [degF] Dr. Sheldon Bolanos Work Phone: 4(991)[phone] [place] [address] 02-18-2025 09:27-0400 Diastolic blood pressure 76 mm[Hg] Dr. Sheldon Bolanos Work Phone: 5(057)123-799920 [place] [address] 02-18-2025 09:27-0400 Heart rate 81 /min Dr. Sheldon Bolanos Work Phone: 1(765)180-020465 [place] [address] 02-18-2025 09:27-0400 Respiratory rate 16 /min Dr. Sheldon Bolanos Work Phone: 9(869)180-704520 [place] [address] 02-18-2025 09:27-0400 SaO2% (BldA) [Mass fraction] 100 % Dr. Sheldon Bolanos Work Phone: 9(468)954-877565 [place] [address] 02-18-2025 09:27-0400 Systolic blood pressure 128 mm[Hg] Dr. Sheldon Bolanos Work Phone: 6(857)473-148065 [place] [address] 02-18-2025 08:17-0400 Body height 175.[address] Sheldon Bolanos Work Phone: 6(470)632-978620 [place] [address] 02-18-2025 08:17-0400 Body mass index (BMI) [Ratio] 26.3 kg/m2 Dr. Sheldon Bolanos Work Phone: 5(585)862-981565 [place] [address] 02-18-2025 08:17-0400 Body weight 80.[address] Sheldon Bolanos Work Phone: 1(604)415-166465 [place] [address] 02-11-2024 09:34-0400 Body mass index (BMI) [Ratio] 27.25 kg/m2 Becky Praisler-Wood LAUNDRY AIDE.[employer]FF[employer] Work Phone: [facility] 02-11-2024 09:34-0400 Body temperature 97.7 [degF] Becky Praisler-Wood LAUNDRY AIDE.[employer] TRAFFIC [employer]ER Work Phone: [facility] 02-11-2024 09:34-0400 Body weight 83.7 kg Becky Praisler-Wood LAUNDRY AIDE.[employer] TRAFFIC [employer]ER Work Phone: [facility] 02-11-2024 09:34-0400 Diastolic blood pressure 78 mm[Hg] Becky Praisler-Wood LAUNDRY AIDE.[facility] Work Phone: [facility] 02-11-2024 09:34-0400 Heart rate 70 /min Becky Praisler-Wood LAUNDRY AIDE.[facility] Work Phone: [facility] 02-11-2024 09:34-0400 Respiratory rate 21 /min Becky Praisler-Wood LAUNDRY AIDE.[employer] Work Phone: [facility] 02-11-2024 09:34-0400 SaO2% (BldA) [Mass fraction] 99 % Becky Praisler-Wood LAUNDRY AIDE.[employer] TRAFF[employer]ER Work Phone: [facility] 02-11-2024 09:34-0400 Systolic blood pressure 124 mm[Hg] Becky Praisler-Wood LAUNDRY AIDE.[employer]ER Work Phone: [facility] 12-13-2023 08:48-0400 Body mass index (BMI) [Ratio] 27.67 kg/m2 Becky Praisler-Wood LAUNDRY AIDE.[employer]FF[employer] Work Phone: [facility] 12-13-2023 08:48-0400 Body temperature 98.29 [degF] Becky Praisler-Wood LAUNDRY AIDE.[employer]FF[employer] Work Phone: [facility] 12-13-2023 08:48-0400 Body weight 85 kg Becky Praisler-Wood LAUNDRY AIDE.[employer]FF[employer]ER Work Phone: [facility] 12-13-2023 08:48-0400 Diastolic blood pressure 79 mm[Hg] Becky Praisler-Wood LAUNDRY AIDE.[employer]ER Work Phone: [facility] 12-13-2023 08:48-0400 Heart rate 68 /min Becky Praisler-Wood LAUNDRY AIDE.[employer] Work Phone: [facility] 12-13-2023 08:48-0400 Respiratory rate 20 /min Becky Praisler-Wood LAUNDRY AIDE.[employer] Work Phone: [facility] 12-13-2023 08:48-0400 SaO2% (BldA) [Mass fraction] 99 % Becky Praisler-Wood LAUNDRY AIDE.[employer] Work Phone: [facility] 12-13-2023 08:48-0400 Systolic blood pressure 146 mm[Hg] Becky Praisler-Wood LAUNDRY AIDE.[employer] Work Phone: [facility] 10-30-2023 08:43-0400 Body temperature 97.8 [degF] [facility] 10-30-2023 08:43-0400 Diastolic blood pressure 74 mm[Hg] [facility] 10-30-2023 08:43-0400 Heart rate 88 /min [facility] 10-30-2023 08:43-0400 Respiratory rate 16 /min [facility] 10-30-2023 08:43-0400 SaO2% (BldA) [Mass fraction] 97 % [facility] 10-30-2023 08:43-0400 Systolic blood pressure 128 mm[Hg] [facility] 10-30-2023 07:16-0400 Body height 175.26 cm [facility] 10-30-2023 07:16-0400 Body mass index (BMI) [Ratio] 26.6 kg/m2 [facility] 10-30-2023 07:16-0400 Body weight 81.82 kg [facility] 01-24-2023 14:28-0400 Respiratory rate 22 /min [facility] 01-24-2023 11:11-0400 Body height 175.26 cm [facility] 01-24-2023 11:11-0400 Body mass index (BMI) [Ratio] 27.7 kg/m2 [facility] 01-24-2023 11:11-0400 Body temperature 97.9 [degF] [facility] 01-24-2023 11:11-0400 Body weight 85.27 kg [facility] 01-24-2023 11:11-0400 Diastolic blood pressure 80 mm[Hg] [facility] 01-24-2023 11:11-0400 Heart rate 70 /min [facility] 01-24-2023 11:11-0400 SaO2% (BldA) [Mass fraction] 98 % [facility] 01-24-2023 11:11-0400 Systolic blood pressure 140 mm[Hg] [facility] 04-28-2022 08:49-0400 Body temperature 97.9 [degF] Sally Pearl LAUNDRY AIDE.[employer] TRAFFIC [employer]OLLER Work Phone: [facility] 04-28-2022 08:49-0400 Body weight 86.36 kg Sally Pearl LAUNDRY AIDE.[employer] TRAFF[employer]OLLER Work Phone: [facility] 04-28-2022 08:49-0400 Diastolic blood pressure 82 mm[Hg] Sally Pearl LAUNDRY AIDE.[employer] TRAFF[employer]OLLER Work Phone: [facility] 04-28-2022 08:49-0400 Heart rate 68 /min Sally Pearl LAUNDRY AIDE.[employer] TRAFF[employer]OLLER Work Phone: [facility] 04-28-2022 08:49-0400 Respiratory rate 16 /min Sally Pearl LAUNDRY AIDE.[employer] TRAFFIC CONTROLLER Work Phone: [facility] 04-28-2022 08:49-0400 SaO2% (BldA) [Mass fraction] 99 % Sally Pearl LAUNDRY AIDE.[employer] TRAFFIC [employer]OLLER Work Phone: [facility] 04-28-2022 08:49-0400 Systolic blood pressure 138 mm[Hg] Sally Pearl LAUNDRY AIDE.[employer] TRAFFIC [employer]OLLER Work Phone: [facility] 01-17-2022 13:13-0400 Body height 175.3 cm Braden Faith MD Work Phone: [facility] 01-17-2022 13:13-0400 Body weight 84.82 kg Braden Faith MD Work Phone: [facility] 01-17-2022 13:13-0400 Diastolic blood pressure 70 mm[Hg] Braden Faith MD Work Phone: [facility] 01-17-2022 13:13-0400 Heart rate 68 /min Braden Faith MD Work Phone: [facility] 01-17-2022 13:13-0400 Respiratory rate 16 /min Braden Faith MD Work Phone: [facility] 01-17-2022 13:13-0400 Systolic blood pressure 124 mm[Hg] Braden Faith MD Work Phone: [facility] Encounters Encounter Date Encounter Type Care Provider Facility Start: 02-18-2025 End: 02-18-2025 Emergency department patient visit Dr. Sheldon Bolanos Work Phone: -Emergency Department Work Phone: Start: 02-11-2024 Telephone encounter Becky Garcia LAUNDRY AIDE.[employer] TRAFFIC [employer]OLLER Work Phone: [place] [facility] Comment on above: Medication Problem ( Wrong pharmacy/) Start: 02-11-2024 End: 02-11-2024 Subsequent hospital visit by physician Xr [facility] [place] Work Phone: Radiology Comment on above: Foot injury, left, i nitial encounter [S99.922A] Start: 02-11-2024 End: 02-11-2024 ambulatory BECKY ROBLES-MERLY Facility:[facility] Start: 02-11-2024 End: 02-11-2024 Patient encounter procedure Becky Robles-Merly LAUNDRY AIDE.[employer] TRAFFIC [employer]OLLER Work Phone: [place] [facility] Comment on above: Foot injury, left, i nitial encounter (Primary Dx) Start: 12-13-2023 End: 12-13-2023 ambulatory BECKY ROBLES-MERLY Facility:[facility] Start: 12-13-2023 End: 12-13-2023 Patient encounter procedure Becky Soler LAUNDRY AIDE.[employer] TRAFFIC [employer]OLLER Work Phone: [place] [facility] Comment on above: Tick bite of scalp, initial encounter (Primary Dx) Start: 10-30-2023 End: 10-30-2023 Emergency department patient visit No Primary Care Physician Facility:[facility] Start: 10-30-2023 End: 10-30-2023 Emergency department patient visit [facility] Work Phone: Start: 02-05-2023 End: 02-05-2023 Patient encounter procedure [facility] Work Phone: Start: 02-05-2023 End: 02-05-2023 ambulatory Braden [facility] Work Phone: Start: 01-24-2023 End: 01-24-2023 Emergency department patient visit [facility] Facility:[facility] Start: 01-24-2023 End: 01-24-2023 Emergency department patient visit [facility] Start: 11-14-2022 ambulatory Braden carver MD Work Phone: Internal Medicine [facility] Start: 06-02-2022 Telephone encounter Mara Perez APRN.[employer]IRWAY TRAFFIC CONTROLLER Work Phone: Internal Medicine [place] Comment on above: Forms Start: 04-28-2022 End: 04-28-2022 Patient encounter procedure Sally Pearl LAUNDRY AIDE.[employer] TRAFFIC [employer]OLLER Work Phone: [place] [facility] Comment on above: Acute otitis media, right (Primary Dx); Otalgia of both ears Start: 01-17-2022 End: 01-17-2022 Patient encounter procedure Braden Faith MD Work Phone: Family Medicine [place] Comment on above: Type 2 diabetes saad itus without retinopathy (HCC) (Primary Dx); Pure hyperglyceridemia; Primary hypertension Procedures Date Procedure Procedure Detail Performing Clinician Start: 02-11-2024 Radex foot complete minimum 3 views Becky Soler LAUNDRY AIDE.[employer] TRAFFIC [employer]OLLER Work Phone: Start: 01-24-2023 CT of soft [...] DTaP,Tdap,Td Vaccine (3 - Td or Tdap) [facility] Start: 05-18-2031 Urine microalbumin profile DTAP,TDAP,TD (2 - Td or Tdap) [facility] Start: 02-18-2025 [facility] Start: 04-06-2024 Covid-19 Vaccine ( season) Covid-19 Vaccine ( season) [facility] Start: 04-06-2024 Influenza vaccination Influenza Vacc ine (#1) [facility] Start: 11-11-2023 Covid-19 Vaccine ( season) Covid-19 Vaccine ( season) [facility] Start: 11-11-2023 Covid-19 Vaccine ( season) Covid-19 Vaccine ( season) [facility] Start: 10-30-2023 [facility] Start: 08-06-2023 Advance Directive Discussion Advance Directive Discussion [facility] Start: 08-06-2023 Behavioral Health Screening Behavioral Health Screening [facility] Start: 04-06-2023 Influenza vaccination INFLUENZ A (Season Ended) [facility] Start: 01-24-2023 Referral to oncologist [facility] Start: 01-17-2023 3 comp foot exam completed DIABETIC FOOT EXAM [facility] Start: 01-17-2023 ANNUAL PCP TEAM PHOTO TECH AVEL DISEASE VISIT ANNUAL PCP TEAM CHRONIC DISEASE VISIT [facility] Start: 01-17-2023 BP CONTROLLED (<130/80) BP CON TROLLED (<130/80) [facility] Start: 01-17-2023 Diabetic foot examination Diabetic Foot Exam [facility] Start: 01-13-2023 Hepatitis B screening URINE ALBUMIN:CREATININE RATIO [facility] Start: 11-14-2022 End: 01-14-2023 ALBUMIN/CREAT RATIO RND UR ALBUMIN/CREAT RATIO RND UR Lab Routine 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 (HCC) Expected: 11/14/2022, Expires: 01/14/2023 [facility] Work Phone: Comment on above: Expected: 11/14/2022 , Expires: 01/14/2023 Start: 11-14-2022 End: 01-14-2023 Hemoglobin A1c in Blood HGB A1C Lab Routine 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 (HCC) Expected: 11/14/2022, Expires: 01/14/2023 [facility] Work Phone: Comment on above: Expected: 11/14/2022 , Expires: 01/14/2023 Start: 09-13-2022 Hepatitis B surface antibody level LDL CHOLESTEROL [facility] Start: 08-06-2022 ADVANCE DIRECTIVE DISCUSSION ADVANCE DIRECTIVE DISCUSSION [facility] Start: 08-06-2022 DEPRESSION ASSESSMENT DEPRESSION ASS ESSMENT [facility] Start: 07-15-2022 Hemoglobin A1c measurement HbA1C [facility] Start: 07-15-2022 Hemoglobin A1c/Hemoglobin.total in Blood HBA1C [facility] Start: 05-15-2022 COVID-19 VACCINE (4 - Booster for Pfizer series) COVID-19 VACCINE (4 - Booster for Pfizer series) [facility] Start: 04-12-2022 Glaucoma screening Dilated Retinal E xam [facility] Start: 04-12-2022 Hepatitis C antibody , confirmatory test DILATED RETINAL EXAM [facility] Start: 04-06-2022 Influenza vaccination INFLUENZA (#1) [facility] Start: 03-10-2022 COVID-19 VACCINE (4 - Booster for Pfizer series) COVID-19 VACCINE (4 - Booster for Pfizer series) [facility] Start: 08-06-2021 DEPRESSION ASSESSMENT DEPRESSION ASS ESSMENT [facility] Start: 10-11-2019 Adult depression screening assessment DEPRESSION SCREENING [facility] Start: 2002 RSV Vaccine (1 - 1-d ose 60+ series) RSV Vaccine (1 - 1-dose 60+ series) [facility] Start: 01-04-1960 Anxiety Screening Anxiety Screening [facility] Start: 01-04-1960 BP CONTROLLED (<130/80) BP CON TROLLED (<130/80) [facility] Start: 01-04-1960 Depression Screening Depression Scre rosemarie [facility] Patient Education [facility] Work Phone: Patient referral [facility] Work Phone: Immunizations Immunization Date Immunization Notes Care Provider Fa shemar 10-30-2023 tetanus toxoid, redu luis diphtheria toxoid, and acellular pertussis vaccine, adsorbed [facility] 07-12-2023 influenza virus vacc ine, unspecified formulation Becky Soler APRN.CNP Work Phone: [facility] 01-13-2022 COVID-19 vaccine, ag e 12+ yr (PFIZER-BIONTECH - PURPLE TOP) Braden Faith MD Work Phone: [facility] 01-13-2022 influenza, high dose seasonal, preservative-free Braden Faith MD Work Phone: [facility] 05-18-2021 tetanus toxoid, redu luis diphtheria toxoid, and acellular pertussis vaccine, adsorbed Braden Faith MD Work Phone: [facility] 10-09-2020 COVID-19 vaccine, ag e 12+ yr (PFIZER-BIONTECH - PURPLE TOP) Braden Faith MD Work Phone: [facility] 09-18-2020 COVID-19 vaccine, ag e 12+ yr (PFIZER-BIONTECH - PURPLE TOP) Braden Faith MD Work Phone: [facility] 02-10-2020 zoster vaccine recombinant Braden Faith MD Work Phone: [facility] 04-22-2019 zoster vaccine recombinant Braden Faith MD Work Phone: [facility] 05-05-2018 influenza, high dose seasonal, preservative-free Braden Faith MD Work Phone: [facility] 05-19-2016 influenza, high dose seasonal, preservative-free Braden Faith MD Work Phone: [facility] 03-24-2016 zoster vaccine, live Braden burnett MD Work Phone: [facility] 05-11-2015 influenza, high dose seasonal, preservative-free Braden Faith MD Work Phone: [facility] 05-11-2015 pneumococcal conjuga te vaccine, 13 valent Braden Faith MD Work Phone: [facility] 04-16-2014 pneumococcal polysaccharide vaccine, 23 valent Braden Faith MD Work Phone: [facility] 08-14-2012 influenza virus vacc ine, unspecified formulation Braden Faith MD Work Phone: [facility] 05-16-2010 influenza virus vacc ine, unspecified formulation Braden Faith MD Work Phone: [facility] 05-07-2009 influenza virus vacc ine, unspecified formulation Braden Faith MD Work Phone: [facility] 02-27-2008 tetanus and diphther ia toxoids, adsorbed, preservative free, for adult use (2 Lf of tetanus toxoid and 2 Lf of diphtheria toxoid) Braden Faith MD Work Phone: [facility] 08-21-2006 influenza virus vacc ine, unspecified formulation Braden Faith MD Work Phone: [facility] Payers Date Payer Category Payer Self-pay [id number] 2023 Unknown [id number] 2020 Medicare UHC MEDICARE UHC MEDICARE ADVANTAGE PPO [id number] 2020-Present [phone] [address] [address] [place] [address] PPO [id number] 2020 Medicare UHC MEDICARE UHC MEDICARE ADVANTAGE PPO [id number] 2020-Present [phone] [address] [address] [place] [address] PPO [id number] 2020 Unknown [id number] Medicare [id number] Unknown [id number] Unknown [id number] Social History Date Type Detail Facility Start: 04-28-2022 End: 02-18-2025 Tobacco smoking status NHIS Ex-smoker [facility] End: 08-06-1984 History of tobacco use Current smoker [facility] Start: 01-17-2022 End: 02-11-2024 Alcohol intake Ex-drinker (finding) [facility] Start: 1940 Sex Assigned At Not on file [facility] Start: 01-07-2022 End: 05-09-2022 Exposure to SARS-CoV-2 (event) Not sure [facility] End: 08-06-1984 History of tobacco use Cigarette Smoker [facility] Start: 04-28-2022 Tobacco use and exposure Former smokeless tobacco user [facility] Start: 01-24-2023 End: 10-30-2023 Tobacco smoking status [facility] Unknown if ever smoked [facility] Start: 1940 Sex Assigned At Male [facility] Start: 07-11-2020 End: 12-13-2023 History of Social function [facility] Start: 07-11-2020 End: 12-13-2023 Tobacco use panel [facility] Adult Depression Screening Assessment [facility] Medical Equipment Procedure Code Equipment Code Equipment Origin al Text Equipment Identifier Dates Use as instructed [id number], [id number] Start: 11-24-2015 Comment on above: Use as instructed Clinical Notes 03-02-2008 to 02-11-2024 Telephone Encounter - Becky Soler APRN.CNP - 02/11/2024 1:41 PM EDTTelephone Encounter - Becky Soler APRN.CNP - 02/11/2024 1:41 PM EDTPatient InstructionsPatient Instructions Note Date & Type Note Facility 02-11-2024 Telephone encounter Note Prescription sent to [facility] in [place]. Becky Soler APRN.CNP [facility] 02-11-2024 Miscellaneous Notes Prescription sent to [facility] in [place]. Becky Soler APRN.CNP Patient called requesting to please send Rx to [facility] in [place] Please advise Thank you documented in this encounter [facility] 02-11-2024 Note Addended by: BECKY RODRIGUEZ on: 02/11/2024 01:40 PM Modules accepted: Orders [facility] 02-11-2024 Miscellaneous Notes Addended by: BECKY SOLER on: 02/11/2024 01:40 PM Modules accepted: Orders documented in this encounter [facility] 02-11-2024 Telephone encounter Note Patient called requesting to please send Rx to [facility] in [place] Please advise Thank you [facility] Work Phone: 02-11-2024 Instructions Becky Soler APRN.AIRWAY TRAFFIC CONTROLLER - 02/11/2024 10:42 AM EDT ASSESSMENT/PLAN: 1. [...] No radiographic evidence of acute osseous injury Cable Television Technician: AUNG Transcribe Date/Time: Feb 11 2024 10:34A [...] Discussed expected course of illness Becky Soler APRN.AIRWAY TRAFFIC CONTROLLER documented in this encounter [facility] 02-11-2024 History of Presen t illness [...] PATIENT PRESENTS WITH AN IMPLANTABLE OR ATTACHED CONCRETE FENCE BUILDER: No RADIOLOGY DEPARTMENT: General X-ray: Exam(s) Completed: Lower Extremity X-Ray(s): Foot, Left PERIPHERAL IV DATA: Not applicable SIGNED BY: RT Jose G(Karime) February 11, 2024 10:14 AM documented in this encounter [facility] 02-11-2024 Note HNO ID: [id number] Author: SID HOFFMANN RT(R) Service: ? Author Type: Core Extruder Type: Progress Notes Filed: 02/11/2024 10:24 Note [...] PATIENT PRESENTS WITH AN IMPLANTABLE OR ATTACHED CONCRETE FENCE BUILDER: No RADIOLOGY DEPARTMENT: General X-ray: Exam(s) Completed: Lower Extremity X-Ray(s): Foot, Left PERIPHERAL IV DATA: Not applicable SIGNED BY: RT Jose G(Karime) February 11, 2024 10:14 AM [facility] 02-11-2024 Note HNO ID: [id number] Author: BECKY SOLER APRN.AIRWAY TRAFFIC CONTROLLER Service: ? Author Type: Nurse Practitioner Type: [...] nostril once daily. Rinse mouth after use. Ftztu-4-QWL-EPA-Fish Oil 1,000 mg (120 mg-180 mg) cap [...] tablet by mouth once daily. Back Brace [facility] back brace; Use as directed. M51.36, Degenerative [...] No radiographic evidence of acute osseous injury Cable Television Technician: AUNG Transcribe Date/Time: Feb 11 2024 10:34A [...] Discussed expected course of illness Becky Soler APRN.[facility] 02-11-2024 History of Presen t illness [...] nostril once daily. Rinse mouth after use. Rirny-3-PSN-EPA-Fish Oil 1,000 mg (120 mg-180 mg) cap [...] tablet by mouth once daily. Back Brace [facility] back brace; Use as directed. M51.36, Degenerative [...] No radiographic evidence of acute osseous injury Cable Television Technician: AUNG Transcribe Date/Time: Feb 11 2024 10:34A [...] Discussed expected course of illness Becky Soler APRN.AIRWAY TRAFFIC CONTROLLER documented in this encounter [facility] 12-13-2023 Note HNO ID: [id number] Author: BECKY SOLER APRN.AIRWAY TRAFFIC CONTROLLER Service: ? Author Type: Nurse Practitioner Type: [...] nostril once daily. Rinse mouth after use. Bwwvw-5-YNS-EPA-Fish Oil 1,000 mg (120 mg-180 mg) cap [...] by mouth once daily. Back Brace misc Ringling back brace; Use as directed. M51.36, Degenerative [...] Discussed expected course of illness Becky Soler APRN.[facility] 12-13-2023 History of Kyleigh albright illness [...] nostril once daily. Rinse mouth after use. Lyqyf-9-LKL-EPA-Fish Oil 1,000 mg (120 mg-180 mg) cap [...] tablet by mouth once daily. Back Brace [facility] Ring[place] back brace; Use as directed. M51.36, Degenerative [...] Becky Soler APRN.DELIA documented in this encounter [facility] 12-13-2023 Instructions Becky Soler APRN.CNP - 12/13/2023 [...] with short-term memory documented in this encounter [facility] 02-24-2023 Note HNO ID: [id number] Author: Raven Bowers MA Service: ? Author Type: Channel Rebuilder Type: Progress Notes Filed: 02/24/2023 1:56 PM Note Text: POPULATION HEALTH NAVIGATION OUTREACH Action/FYI PCP updated to [facility] per Care Everywhere Patient Identified by Name and : NO Outreach Outcome/Action PCP field updated Did you use a PCP flex slot to schedule this appointment? N/A Reason for Outreach HCC or suspected condition Payer: Payor: [facility] MEDICARE / Plan: [facility] MEDICARE ADVANTAGE PPO / Product Type: [...] Health Navigator February 24, 2023 1:55 PM [facility] 02-24-2023 Note Patient Outreach (ARCHANA TNAV) RUEL ALANIZ ([id number]) 1940 M Date Time Provider Department 02/24/23 RAVEN BOWERS During your visit today, we recorded the following information about you: Raven Bowers MA 02/24/2023 1:56 PM Signed POPULATION HEALTH NAVIGATION OUTREACH Action/FYI PCP updated to [facility] per Care Everywhere Patient Identified by Name and : NO Outreach Outcome/Action PCP field updated Did you use a PCP flex slot to schedule this appointment? N/A Reason for Outreach HCC or suspected condition Payer: Payor: [facility] MEDICARE / Plan: [facility] MEDICARE ADVANTAGE PPO / Product Type: [...] Date Reviewed: 05/09/2022 Reviewed by: Nikita Joiner APRN.AIRWAY TRAFFIC CONTROLLER - Fully Assessed Reason for Visit: Population Health Navigation Outreach [3910] Cmt: [facility] Low HCC Prescriptions as of 02/24/2023 - fluticasone (FLONASE) 50 mcg/actuation nasal spray Use 2 Sprays in each nostril once daily. Rinse mouth after use. - Ajqid-5-FVV-EPA-Fish Oil 1,000 mg (120 mg-180 mg) cap [...] mouth once daily. - Back Brace mis Ringling back brace; Use as directed. M51.36, Degenerative [...] Encounter Status:Closed by RAVEN BOWERS on 02/24/23 [facility] 01-24-2023 Discharge summary Note Date/Time January 24, 2023 11:41am [facility] Medical Records Department [address] [place] [address] Emergency Department Summary 01/24/23 MR#: [id number] Acct: [id number] Name: RUEL ALANIZ Miller Rep #:[id number] : 1940 83 From: Eren Bailey PCP: Dr. Braden Faith MD Status:RE G ER Location: ED HPI History of Present Illness Chief Complaint: [facility] Medical History (Updated 01/24/23 @ 14:01 [...] % (Auto) 59.2 Lymph % (Auto) 27.4 Mcmullen % (Auto) 9.4 Eos % (Auto) 1.5 [...] Fast Pass: Oncology Referral [facility] (Routine) Facility: [facility] - Location: [facility] Ordered By: Dr. Eren [...] problems, contact your Primary Care Provider. Call [facility] ([phone]) or report to the closest Emergency Room. Call 911 if necessary. 01/24/23 1413 <Electronically signed by Eren Ignacio DO> Cosigner Signature (if applicable): CC: Dr. Braden Faith MD ~ Signed [facility] Work Phone: 1(909) 737-194411-23-2022 Miscellaneous Notes* Telephone Encounter - Krista Araujo [...] - 06/02/2022 10:00 AM EDT Pao from [employer] called to follow up on Attestation form (signatrue request) faxed to the provider. Please call [phone] reference # [id number]. [facility] Instructions* Patient Instructions* Sally Pearl APRN.DELIA - [...] even if the symptoms go away. 2. Rtpu-nav-djlkelh pain medication may be taken or other [...] holding him or her). [facility] History of Present illness Narrative* Sally Pearl APRN.CNP - 04/28/2022 8:55 AM EDT This note was created using [employer]riter. Subjective Ruel Alaniz is a 82 year old male. 82 year old male with PMH HTN and DM presents for complaints of right ear pain. Acute onset of symptoms was approximately 3 weeks ago. Right ear [place] full Feel a clicking States when he touches his head he develops pain. Denies drainage. Denies fever or chills. Denies accompanying URI sx. Denies cough. Denies SOB or dyspnea. Utilized drops from a kit bought by the store. Denies factors that seem to alleviate. Denies factors that seem to aggravate. The history is provided by the patient. No photovoltaic fabrication technician was used. Ear Pain This is a [...] as a child ALLERGIES Dick Inhibitors MEDICATIONS Myeqf-9-MDH-EPA-Fish Oil 1,000 mg (120 mg-180 mg) cap [...] tablet by mouth once daily. Back Brace [facility] Ring[place] back brace; Use as directed. M51.36, Degenerative [...] PCP Sally Pearl APRN.DELIA [facility] Miscellaneous Notes* Addendum Note - Krista Araujo Ma - 01/17/2022 3:35 PM EDT Addended by: KRISTA ARAUJO MA on: 01/17/2022 03:35 PM Modules accepted: Orders * Addendum Note - Krista Araujo Ma - 01/17/2022 3:34 PM EDT Addended by: KRISTA ARAUJO MA on: 01/17/2022 03:34 PM Modules accepted: Orders documented in [facility] History of Present illness Narrative* Braden Faith MD - 01/17/2022 1:20 PM EDT Chief Complaint Patient presents with: Physical HPI Ruel Alaniz is a 82 year old male who presents here today for a Wellness Exam. Pt completing a Wellness visit today. Pt recently seen by Betsy Ojeda CNP for an acute visit. Last visit was a telephone visit on 09/22/20. Goes to [facility] regularly to see different providers there. Wears Hearing aids but forgot them today. He enjoys riding motorcycles with is who has her own motorcycle but this past year she was really busy with her patch business, makes patches for motorcycle vests, does a lot of sewing and leather work. They have 2 Ukrainian Bulldogs. He does have an advanced directive or living will. Pt does not know what medications he is taking, stated [facility] BP medication he thinks starts with an A. Advised pt to bring his medication bottles to his next appointment. Will tryto get records from the [place]. He had blood work done at the [place], had the COVID vaccines. Still doing wood [...] horse medication. Skin: Follows with Derm at [place]. Lipid: Tries to stay active, goes up [...] his feet checked and nails trimmed by Solid Waste Analyst and Vascular provider with the [place]. He is taking Metformin 1,000 mg BID and Glucotrol 5 mgBID. Psych: Follows with a counselor at [place] for depression. Is sleeping ok, does get [...] by mouth once daily. Back Brace misc Ringling back brace; Use as directed. M51.36, Degenerative [...] Past Histories independently gathered by the clinical application support and the remaining scribed note accurately describes [...] PM. 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 8 documented as of this encounter (statuses as of 06/28/2022) [facility] History of Past illness Narrative* Problem Noted Date Resolved Date 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 8 documented as of this encounter (statuses as of 11/17/2022) [facility] note* Diagnosis 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 (HCC)- Primary Type II or unspecified type diabetes mellitus without mention of complication, not stated as uncontrolled Pure hyperglyceridemia Primary hypertension Unspecified essential hypertension [facility] Diagnosis Acute otitis media, right- Primary Unspecified otitis media Otalgia of both ears Otalgia, unspecified [facility]* Diagnosis 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 (HCC) Type II or unspecified type diabetes mellitus without mention of complication, not stated as uncontrolled documented in this encounter [facility] noteNo assessment information availableWooUniversity Hospitals [facility] Work Phone: Evaluation note* Diagnosis Tick bite of scalp, initial encounter- Primary [facility]* Diagnosis Foot injury, left, initial encounter [facility] Diagnosis Foot injury, left, initial encounter- Primary Foot injury, left, initial encounter [facility] Discharge instructions Additional Instructions Thank you [...] an oncologist for further evaluation and further treatment.[facility] Work Phone: Hospital Discharge instructionsAdditional Instructions Wound care as discussed. take antibiotic as prescribed. Follow-up with your doctor.[facility] Work Phone: Reason for referral (narrative)* Diagnostic Procedure Only (Urgent) - Closed Specialty Diagnoses / Procedures Referred By Contac t Referred To Contact XR IMAGING Diagnoses Foot injury, left, initial encounter Procedures XR FOOT GENERAL 3V AP/LAT/OBL LEFT RADEX FOOT COMPLETE MINIMUM 3 VIEWS Becky Soler APRN.AIRWAY TRAFFIC CONTROLLER [address] [place] [address] [place] [address] Referral ID Status Reason Start Date Expiration Date V isits Requested Visits Authorized [id number] Closed Auto-Generate d Referral 02/11/2024 03/12/2025 1 1 [facility] for referral (narrative)* Diagnostic Procedure Only (Urgent) - Closed Specialty Diagnoses / Procedures Referred By Contac t Referred To Contact XR IMAGING Diagnoses Foot injury, left, initial encounter Procedures XR FOOT GENERAL 3V AP/LAT/OBL LEFT RADEX FOOT COMPLETE MINIMUM 3 VIEWS Becky Soler APRN.AIRWAY TRAFFIC CONTROLLER [address] [place] [address] [place] [address] Referral ID Status Reason Start Date Expiration Date V isits Requested Visits Authorized [id number] Closed Auto-Generate d Referral 02/11/2024 03/12/2025 1 1 [facility] for referral (narrative)No reason for referral information availableWUC [facility] Work Phone: Reason for visit Narrative* Diagnostic Procedure Only (Urgent) - Closed Specialty Diagnoses / Procedures Referred By Contac t Referred To Contact XR IMAGING Diagnoses Foot injury, left, initial encounter Procedures XR FOOT GENERAL 3V AP/LAT/OBL LEFT RADEX FOOT COMPLETE MINIMUM 3 VIEWS Becky Soler APRN.AIRWAY TRAFFIC CONTROLLER [address] [place] [address] [place] [address] Referral ID Status Reason Start Date Expiration Date V isits Requested Visits Authorized [id number] Closed Auto-Generate d Referral 02/11/2024 03/12/2025 1 1 [facility] Chief Complaint and Reason for Visit Chief Complaint dental Chief Complaint dental PAROTID CYST, NECK MASS Chief Complaint LACERATION Chief Complaint Admit Date cellulitis February 18, 2025 8:17 am Advance Directives Advance Directive Response Recorded Date/ Time Living Will Yes January 24, 2023 11:22am Power of Engineer Internship Yes January 24 11:22am Name of Medical Power of Engineer Internship WIFES FRIEND. January 24, 2023 11:22am Advance Directive Response Recorded Date/ Time Living Will No October 30, 2023 7:34am Power of Engineer Internship No October 29 7:34am Advance Directive Response Recorded Date/ Time Do you have a Healthcare Power of Engineer Internship? No February 18, 2025 9:21am Summary Purpose [...] or prosecute any alcohol or drug abuse patient.[facility] Hospital[facility] the event this information is protected by the Federal Confidentiality of Alcohol and Drug Abuse Patient Records regulations: The Federal rules restrict any use of the information to criminally investigate or prosecute any alcohol or drug abuse patient.[facility] HospitalIn the event this information is protected by the Federal Confidentiality of Alcohol and Drug Abuse Patient Records regulations: The Federal rules restrict any use of the information to criminally investigate or prosecute any alcohol or drug abuse patient.[facility] HospitalIn the event this information is protected by the Federal Confidentiality of Alcohol and Drug Abuse Patient Records regulations: The Federal rules restrict any use of the information to criminally investigate or prosecute any alcohol or drug abuse patient.[facility] HospitalIn the event this information is protected by the Federal Confidentiality of Alcohol and Drug Abuse Patient Records regulations: The Federal rules restrict any use of the information to criminally investigate or prosecute any alcohol or drug abuse patient.[facility] HospitalIn the event this information is protected by the Federal Confidentiality of Alcohol and Drug Abuse Patient Records regulations: The Federal rules restrict any use of the information to criminally investigate or prosecute any alcohol or drug abuse patient.[facility] HospitalIn the event this information is protected by the Federal Confidentiality of Alcohol and Drug Abuse Patient Records regulations: The Federal rules restrict any use of the information to criminally investigate or prosecute any alcohol or drug abuse patient.[facility] HospitalIn the event this information is protected by the Federal Confidentiality of Alcohol and Drug Abuse Patient Records regulations: The Federal rules restrict any use of the information to criminally investigate or prosecute any alcohol or drug abuse patient.[facility] Reason for Visit (unrecogniz ed section and content) Reason Comments Physical Specialty Diagnoses / Procedures Referred By Contkerry t Referred To Contact Family Practice / FAMILY MEDICINE Diagnoses yearly exam Procedures 4C EST WELL Self Braden Faith MD [address] [place] [address] Referral ID Status Reason Start Date Expiration Date Visits Re quested Visits Authorized [id number] Closed 01/17/2022 08/05/2022 1 1 Reason Comments Ear Pain Right ear pain x 3 w eeks Reason Comments Forms Reason Comments Derm Problem Tick bite on back of head R side x 1 monthRemoved 5 days ago, concerned about testing Reason Comments Medication Problem Wrong pharmacy Reason Comments Trauma Left foot injury/connie n x 4 days Care Teams (unrecognized sec tion and content) Assisted Living Assistant Relationship Specialty Start Date End Date Braden Faith MD [address] [place] [address] PCP - General Family Practice 08/14/12 Assisted Living Assistant Relationship Specialty Start Date End Date Braden Faith MD [address] [place] [address] PCP - General Family Medicine 08/14/12 Assisted Living Assistant Relationship Specialty Start Date End Date Braden Faith MD [address], [place] [id number] PCP - General Family Medicine 08/14/12 Assisted Living Assistant Relationship Specialty Start Date End Date Braden Faith MD [address], [place] [id number] PCP - General Family Medicine 08/14/12 Team [...] Primary Care Physician Primary Care Provider Active Assisted Living Assistant Relationship Specialty Start Date End Date ([facility]), [facility] [address] [place] [address] PCP - General 02/24/23 Assisted Living Assistant Relationship Specialty Start Date End Date ([facility]), [facility] [address] [place] [address] PCP - General 02/24/23 Assisted Living Assistant Relationship Specialty Start Date End Date ([facility]), [facility] [address] [place] [address] PCP - General 02/24/23 Assisted Living Assistant Relationship Specialty Start Date End Date ([facility]), [facility] [address] [place] [address] PCP - General 02/24/23 Team Status: Active Member Role/Relationship Status Dates [facility] Primary Care Provider Active Team Status: Inactive Member Role/Relationship Status Dates Dr. Sheldon Black DO Emergency Provider Active Start : February 18, 2025 End: February 18, 2025 [facility] Primary Care Provider Active Start: February 18, [...] section and content) DATE CREATED AUTHOR 11/07/2023 [facility] DATE CREATED AUTHOR AUTHOR'S LISA VIGIL 02/11/2024 [facility] FOR RECORDS PERTAINING TO PATIENTS WHO ARE [...] BE BASED ON THE PRIMARY CLINICAL RECORDS. [employer] provides no warranty or guarantee of the accuracy or completeness of information in this document.
== END 2025-02-18 09:28 | disposition home or self-care (01) ==
LOC: ED 09:02
PROVIDERS: Emergency Provider Emergency Medicine; Visit Provider Emergency Medicine
DX: S50.811A Abrasion of right forearm, initial encounter (principal); E11.9 Type 2 diabetes mellitus without complications; I10 Essential (primary) hypertension; Z87.891 Personal history of nicotine dependence; L03.90 Cellulitis, unspecified; W54.1XXA Struck by dog, initial encounter
CPT/HCPCS: 99282